=== PATIENT | female | born 1950 | race Caucasian/White ===

== ENCOUNTER → 2020-08-02 15:29 | Outpatient (CLI) | payer MEDICARE, SELFPAY ==
--- NOTE | ~2020-08-02 | MM_ITS ---
EXAMINATION: MM screening abdirahman BI w shilpi HISTORY: Screening TECHNIQUE: Craniocaudal and mediolateral oblique 3-D tomosynthesis images were obtained and synthetic 2-D images were generated. CAD analysis was submitted and interpreted. COMPARISON: Comparison to multiple prior studies sequentially, with oldest reviewed study dated 01/2015. BREAST PARENCHYMAL COMPOSITION: There are scattered areas of fibroglandular density. FINDINGS: There is no evidence of suspicious mass, calcification, or architectural distortion to sugg est malignancy in either breast. There has been no suspicious interval change. IMPRESSION: 1. No mammographic evidence of malignancy. 2. Recommend routine screening mammography in one year. BI-RADS Category 1: Negative Reviewed, dictated and finalized at location A. T ACCOUNTANT
== END ==
PROVIDERS: Visit Provider Student in an Organized Health Care Education/Training Program
DX: Z12.31 Encounter for screening mammogram for malignant neoplasm of breast (principal)
CPT/HCPCS: 77063; 77067

== ENCOUNTER → 2021-10-12 12:21 | Outpatient (CLI) | payer MEDICARE, SELFPAY ==
--- NOTE | ~2021-10-12 | MM_ITS ---
EXAMINATION: MM screening abdirahman BI w shilpi HISTORY: Screening TECHNIQUE: Craniocaudal and mediolateral oblique 3-D tomosynthesis images were obtained and synthetic 2-D images were generated. CAD analysis was submitted and interpreted. COMPARISON: No prior mammogram is available for comparison at this institution. BREAST PARENCHYMAL COMPOSITION: Comparison to multiple prior studies sequentially, with oldest review ed study dated 03/01/2015. FINDINGS: There is no evidence of suspicious mass, calcification, or architectural distortion to sugg est malignancy in either breast. There has been no suspicious interval change. IMPRESSION: 1. No mammographic evidence of malignancy. 2. Recommend routine screening mammography in one year. BI-RADS Category 2: Benign finding(s). Reviewed, dictated and finalized at location D. DIRECTOR
== END ==
PROVIDERS: Visit Provider Student in an Organized Health Care Education/Training Program
DX: Z12.31 Encounter for screening mammogram for malignant neoplasm of breast (principal)
CPT/HCPCS: 77063; 77067

== ENCOUNTER → 2021-12-07 13:28 | Outpatient (CLI) | payer MEDICARE, SELFPAY ==
--- NOTE | ~2021-12-07 | DEXA_ITS ---
Bone Density Report Name: CAROLYN CHA Age: 71 Sex: Female Ethnicity: White Date of : 1950 Indication: postmenopausal; screening for osteoporosis; Referring Provider: Clara Lugo Study: Bone densitometry was performed. Exam Date: December 07, 2021 Accession number: [id number] Bone Density: Region BMD T-score Z-score Classification AP Spine (L1-L4) 1.175 1.2 3.3 Normal Femoral Neck (Left) 0.940 0.8 2.6 Normal Total Hip (Left) 1.106 1.3 2.9 Normal Femoral Neck (Right) 0.905 0.5 2.3 Normal Total Hip (Right) 1.069 1.0 2.6 Normal Total Hip Mean 1.088 1.2 2.8 Normal World Health Organization criteria for BMD impression classify patients as: Normal (T-score at or above -1.0), Osteopenia (T-score between -1.0 and -2.5), or Osteoporosis (T-score at or below -2.5). 10-year Fracture Risk: FRAX not reported because: All T-scores for Spine Total, Hip Total, Femoral Neck at or above -1.0 Previous Exams: Region Exam Age BMD T-score BMD Change BMD Change Date g/cm2 vs Baseline vs Previous AP Spine(L1-L4) 12/07/2021 71 1.175 1.2 -0.015 0.016 05/08/2019 68 1.159 1.0 -0.032* -0.053* 06/23/2016 65 1.212 1.5 0.022 0.058* 02/19/2014 63 1.153 1.0 -0.037* -0.037* 02/09/2012 61 1.190 1.3 Total Hip(Left) 12/07/2021 71 1.106 1.3 -0.019 -0.021 05/08/2019 68 1.126 1.5 0.002 0.015 06/23/2016 65 1.111 1.4 -0.014 0.008 02/19/2014 63 1.103 1.3 -0.022 -0.022 02/09/2012 61 1.124 1.5 Total Hip(Right) 12/07/2021 71 1.069 1.0 -0.025 -0.002 05/08/2019 68 1.071 1.1 -0.023 -0.017 06/23/2016 65 1.088 1.2 -0.007 0.000 02/19/2014 63 1.088 1.2 -0.006 -0.006 02/09/2012 61 1.095 1.3 *Denotes significance at 95% confidence level, LSC for AP Spine = 0.022 g/cm2, LSC for Total Hip = 0.027 g/cm2 Clinical Information Provided by Patient: Patient maximum height was 64.0 Menopause Age: 53 No regular weight bearing exercise Drinks caffeinated beverages Onset of menses at age 13 Number of children 2 Impression: The patient has normal bone mass. No significant bone loss was observed. Discussion: LOW RISK OF FRACTURE; BONE DENSITY IS WELL ABOVE THE MINIMUM DESIRABLE LEVEL AN
== END ==
PROVIDERS: Visit Provider Student in an Organized Health Care Education/Training Program
DX: Z78.0 Asymptomatic menopausal state (principal)
CPT/HCPCS: 77080

== ENCOUNTER → 2022-10-26 14:07 | Outpatient (CLI) | payer MEDICARE, SELFPAY ==
--- NOTE | ~2022-10-26 | MM_ITS ---
EXAMINATION: MM screening abdirahman BI w shilpi HISTORY: Screening mammogram TECHNIQUE: Craniocaudal and mediolateral oblique 3-D tomosynthesis images were obtained and synthetic 2-D images were generated. CAD analysis was submitted and interpreted. COMPARISON: July 12, 2022, August 02, 2020, May 08, 2019 bilateral screening mammogram exa minations BREAST PARENCHYMAL COMPOSITION: There are scattered areas of fibroglandular density. FINDINGS: There is no evidence of suspicious mass, calcification, or architectural distortion to sugg est malignancy in either breast. There has been no suspicious interval change. IMPRESSION: 1. No mammographic evidence of malignancy. 2. Recommend routine screening mammography in one year. BI-RADS Category 1: Negative Reviewed, dictated and finalized at location A. N CREW
== END ==
PROVIDERS: PCP Family Medicine; Visit Provider Registered Nurse
DX: Z12.31 Encounter for screening mammogram for malignant neoplasm of breast (principal)
CPT/HCPCS: 77063; 77067

== ENCOUNTER 2023-11-20 14:49 | Outpatient (CLI) | payer MEDICARE, SELFPAY ==
--- NOTE | ~2023-11-20 | MM_ITS ---
EXAMINATION: MM screening abdirahman BI w shilpi HISTORY: Screening mammogram TECHNIQUE: Craniocaudal and mediolateral oblique 3-D tomosynthesis images were obtained and synthetic 2-D images were generated. CAD analysis was submitted and interpreted. COMPARISON: 10/26/2022, 10/12/2021 bilateral screening mammogram examinations BREAST PARENCHYMAL COMPOSITION: There are scattered areas of fibroglandular density. FINDINGS: There is no evidence of suspicious mass, calcification, or architectural distortion to sugg est malignancy in either breast. There has been no suspicious interval change. IMPRESSION: 1. No mammographic evidence of malignancy. 2. Recommend routine screening mammography in one year. BI-RADS Category 1: Negative Reviewed, dictated and finalized at location A.
== END 2023-11-20 14:50 ==
PROVIDERS: PCP Nurse Practitioner Family; Visit Provider Nurse Practitioner Family
DX: Z12.31 Encounter for screening mammogram for malignant neoplasm of breast (principal)
CPT/HCPCS: 77063; 77067

== ENCOUNTER 2024-02-29 14:15 | Outpatient (RCR) | payer MEDICARE, SELFPAY ==
--- NOTE | 2023-12-18 09:58 | OPREHPOC ---
Outpatient Therapy Plan of Care This is a Multidisciplinary Plan of Care that may contain components documented by all disciplines (PT, OT, and ST.) PT Problem 1 PT Problem #1 Knowledge Deficit PT Goal 1 Goal *indep with HEP * use correct posture with exercises Target Visit 10 PT Problem 2 PT Problem #2 Pain PT Goal 1 Goal 1* pt report pain rating at worst of 7/10 2* radicular pain L LE to knee at worst 3* self assessment Oswestry rating of 28% limitation in activity Target Visit 10 PT Problem 3 PT Problem #3 Impaired Flexibility PT Goal 1 Goal improve ROM and mobility skills, pt performing 3x without pain increase 1* supine L hip flexion 2* supine L SLR/hamstring stretch to 60' Target Visit 10 PT Problem 4 PT Problem #4 Impaired Strength PT Goal 1 Goal increase strength of LE's to improve mobility and support to back: 1* supine/sit transfer without use of UE's to move L LE 2* supine mat strengthening exercises x 20 reps Target Visit 10
--- NOTE | 2023-12-18 09:58 | PTOPEVAL1 ---
Assessment and note entered by Mitzi Rodríguez, PT Evaluation Information Assessment Status Evaluation Diagnosis low back pain, sciatica Onset past year Subjective Information chronic back pain since 2020, gradual increase in pain, now worse; into L leg; have been to pain management for back and hip pain - had 6 injections, they did not help; saw neurosurgeon-have bulging disc, ? need surgery or not; have had PT in the past for her back-stretching, exercises, US, electrical stim-helped a little, but not keep up with the exercises; had recent R THR in Aug 2023 Activity: live with sister, who helps her with home tasks; cannot put on shoes/socks- wears slip on shoes; does try to do regular exercises- water exercises at [employer] and walking at [employer] 30 min; indep with showers; Reported Pain Level Pain Score Self Report Additional Pain Score Comments pain range in the past week: 3-10/10, into L LE intermittent to medial ankle, lateral calf, groin and lateral hip; increase pain: stairs, walking/up on feet 30 min; decrease pain: sit/rest, ice, heat, scripts for pain; at night: take muscle relaxer for sleeping, have elevating head and leg bed which helps her sleep position; awaken due to pain 0-1x/night; Assessment PT Clinical Summary Lolis has the diagnosis of low back pain, radicular into L LE to ankle- intermittent. Self assessment Oswestry rating of 40% limitation in activity level. She has a history of chronic back pain and in Aug 2023 had R THR. Pain is increased with walking/standing 30 minutes and unable to put her shoes and socks on her feet. Her sister assists with home tasks and putting on her socks. With the evaluation: trunk flexion increases her pain; tightness and pain with L hamstring stretch in supine; weakness and pain in L LE--uses UEs to move leg on/off mat and in/out car. Skilled PT services are indicated for modalities for pain, therapeutic ex
--- NOTE | 2024-01-17 09:54 | OPREHPOC ---
Outpatient Therapy Plan of Care This is a Multidisciplinary Plan of Care that may contain components documented by all disciplines (PT, OT, and ST.) PT Problem 1 PT Problem #1 Knowledge Deficit PT Goal 1 Goal *indep with HEP * use correct posture with exercises Target Visit 10 Progress Met PT Goal 2 Goal 01-17-24 progress met goals continue towards goals to progress education Target Visit 17 PT Problem 2 PT Problem #2 Pain PT Goal 1 Goal 1* pt report pain rating at worst of 7/10 2* radicular pain L LE to knee at worst 3* self assessment Oswestry rating of 28% limitation in activity Target Visit 10 Progress Not Met PT Goal 2 Goal 01-17-24 progress goals not met continue towards goals Target Visit 17 PT Problem 3 PT Problem #3 Impaired Flexibility PT Goal 1 Goal improve ROM and mobility skills, pt performing 3x without pain increase 1* supine L hip flexion 2* supine L SLR/hamstring stretch to 60' Target Visit 10 Progress Partially Met PT Goal 2 Goal 01-17-24 progress met goal 2 continue towards #1 goal Target Visit 17 PT Problem 4 PT Problem #4 Impaired Strength PT Goal 1 Goal increase strength of LE's to improve mobility and support to back: 1* supine/sit transfer without use of UE's to move L LE 2* supine mat strengthening exercises x 20 reps Target Visit 10 Progress Partially Met PT Goal 2 Goal 01-17-24 progress met goal #1 continue towards goal #2 Target Visit 17
--- NOTE | 2024-01-17 09:55 | PTOPEVAL1 ---
Assessment and note entered by Mitzi Rodríguez, PT Evaluation Information Assessment Status Progress Diagnosis low back pain, sciatica Onset past year Subjective Information therapy is helping; exercises are gentle and help, easy to do; have learned to not over do it with activity; have dizziness with sitting to lying down- have to stop and it clears in few seconds; want to continue therapy; Reported Pain Level Pain Score Self Report Pain Score Self Report Additional Pain Score Comments pain range in the past week 1-10/10; L lateral hip and sometimes radiate from knee to anterior dubon to ankle; increase pain: too much activity decrease pain: heat, muscle relaxer Additional Pain Score Comments none Assessment PT Clinical Summary Lolis has received 9 PT sessions. Continues to use cane for safety with walking outside of her home. Has some dizziness with positional changes. Compared to the initial evaluation: pain rating at the low rating from 3 to 1/10 and worst rating same at 10/10; radicular pain to L LE to ankle, intermittent is the same; self assessment Oswestry rating of 40% limitation is same; increase strength of trunk and LE; continues to have pain with supine L hip flexion, IR and ER motions; increased awareness of pain management with use of activity/rest balance, education for HEP; The goals were partially met. Continue PT treatment. Plan of Care Interventions Electrical Stimulation,Hot Pack/Cold Pack,Manual Therapy,Mechanical Traction,Neuro Re-education, Patient/Caregiver Education,Therapeutic Activities, Therapeutic Exercise,Ultrasound,Other Other Interventions taping, [facility] PT Services Indicated Yes Treatment Frequency and 2x/wk for 8 visits Duration These treatments will address the objective and functional deficits as defined above. The patient will be advanced safely and appropriately in order for the patient to progress towards his/her prior level of function. Additional exercises will be introduced and as well as a comprehensive home exercise program upon discharge, if needed, ?to ensure carryover of functional gains achieved in the clinic. This treatment plan has been reviewed and agreement upon by the patient.
--- NOTE | 2024-02-14 08:42 | PCPTNOTE ---
Pt called and canceled today, ill. AKS
--- NOTE | 2024-02-14 08:53 | PCPTNOTE ---
Patient cancelled today's visit due to illness
--- NOTE | 2024-02-19 11:59 | PTOPEVAL1 ---
Assessment and note entered by Mitzi Rodríguez, PT Evaluation Information Assessment Status Evaluation vertigo/ discharge back treatment Diagnosis vertigo Onset December 2023 Subjective Information back is better, was able to walk yesterday for fitness for 25 minutes; to see ortho dr about L hip- ? need a hip replacement; had L knee injection lately and it helped knee, but still had pain down leg to calf; BACK PAIN: pain range in the past week 3-510; aching lateral thigh to medial calf- intermittent and more at night; decrease pain with supine position, pain gel, heat and tylenol; VERTIGO EVALUATION: use cane to help balance and fearful of falling symptoms: spinning, off balance increase with: lie down/sit up in bed, walking and looking at feet, then look up Reported Pain Level Pain Score 3: Self Report Additional Pain Score Comments BACK PAIN: pain range in the past week 3-10; aching lateral thigh to medial calf- intermittent and more at night; decrease pain with supine position, pain gel, heat and tylenol; Assessment PT Clinical Summary Lolis has received 16 PT sessions for back pain. Compared to the last progress report for her back: pain from -06/05 to 3-01/03; continues to have intermittent pain into L LE to mid dubon; self assessment Oswestry from 40% to 38% limitation; continues to have pain in L hip with flexion, IR and ER motions; Education completed for HEP and pain management techniques. The goals were partially met. Discontinue treatment for back. Evaluation for vertigo this date: vestibular testing: was positive for BPPV- Anterior/ posterior canal on the R; education for vestibular system, safety with mobility and BPPV.
--- NOTE | 2024-02-19 12:00 | OPREHPOC ---
Outpatient Therapy Plan of Care This is a Multidisciplinary Plan of Care that may contain components documented by all disciplines (PT, OT, and ST.) PT Problem 1 PT Problem #1 Knowledge Deficit PT Goal 1 Goal *indep with HEP * use correct posture with exercises Target Visit 10 Progress Met PT Goal 2 Goal 01-17-24 progress met goals continue towards goals to progress education Target Visit 17 Progress Met Comment 02-19-24: d/c back met goal 02-19-24 EVAL for vertigo * indep with HEP for vestibular system * good safety awareness with dizziness and mobility PT Problem 2 PT Problem #2 Pain PT Goal 1 Goal 1* pt report pain rating at worst of 7/10 2* radicular pain L LE to knee at worst 3* self assessment Oswestry rating of 28% limitation in activity Target Visit 10 Progress Not Met PT Goal 2 Goal 01-17-24 progress goals not met continue towards goals Target Visit 17 Progress Partially Met Comment 02-19-24: d/c back met goal 1; PT Problem 3 PT Problem #3 Impaired Flexibility PT Goal 1 Goal improve ROM and mobility skills, pt performing 3x without pain increase 1* supine L hip flexion 2* supine L SLR/hamstring stretch to 60' Target Visit 10 Progress Partially Met PT Goal 2 Goal 01-17-24 progress met goal 2 continue towards #1 goal Target Visit 17 Progress Not Met
--- NOTE | 2024-03-11 09:57 | PCPTNOTE ---
PHYSICAL THERAPY DISCHARGE Lolis has received 18 PT sessions, from December 17 to February 28. She called on March 04, canceled her remaining appointments due to feeling better and not need therapy anymore. Discharge PT per pt request. The goals were not addressed.
== END 2024-03-10 11:25 | disposition home or self-care (01) ==
LOC: ANHPT 14:15
PROVIDERS: PCP Nurse Practitioner Family
DX: M54.42 Lumbago with sciatica, left side (principal); G89.29 Other chronic pain; H81.11 Benign paroxysmal vertigo, right ear; M54.16 Radiculopathy, lumbar region
CPT/HCPCS: 95992; 97014; 97110; 97116; 97140; 97161; 97162; 97530; 99199; G0283

== ENCOUNTER 2024-05-01 11:29 | Outpatient (CLI) | payer MEDICARE, SELFPAY ==
--- NOTE | 2024-05-01 12:59 | ECG_ITS ---
Test Date: 2024-05-01 13:10:42 Measurements Intervals [place] Rate: 61 P: 62 RI: 133 QRS: 15 QRSD: 98 T: 31 QT: 412 QTc: 415 Interpretive Statements SINUS RHYTHM BORDERLINE R WAVE PROGRESSION, ANTERIOR LEADS BORDERLINE ST-T WAVE ABNORMALITY- INFERIOR LEADS BASELINE ARTIFACT- I, II, III, AVR, AVL, AVF, V1-V6 BORDERLINE ECG No previous ECG available for comparison Electronically Signed On 05-01-2024 13:12:46 CDT by James Acevedo D.O.
[2024-05-01 14:03] LABS: Basophils Percent Auto 0.3 % (0.2-1.2); Eosinophils Absolute Auto 0.1 K/mm3 (0-0.3); Eosinophils Percent Auto 1.9 % (0-4.4); Hematocrit 34.5 % (37.0-47.0); Hemoglobin 10.8 g/dL (12.0-15.0); Immature Granulocyte Absolute 0.03 K/mm3 (0.00-0.031); Immature Granulocyte Percent A 0.4 % (0-0.5); Lymphocytes Absolute Auto 2.03 K/mm3 (0.9-3.2); Mean Corpuscular HGB Conc 31.3 g/dl (32-36); Mean Corpuscular Hemoglobin 27.8 pg (26-34); Mean Corpuscular Volume 88.9 fl (80-100); Mean Platelet Volume 9.6 fl (7.4-10.4); Monocytes Absolute Auto 0.6 K/mm3 (0.1-0.6); Monocytes Percent Auto 8.1 % (2.6-8.5); Neutrophils Absolute Auto 4.7 K/mm3 (1.3-6.7); Neutrophils Percent Auto 62.3 % (45.5-73.1); Platelet Count Result 304 k/mm3 (150-375); Red Blood Count 3.88 M/mm3 (4.2-5.4); Red Cell Distribution Width 13.1 % (11.5-14.5); White Blood Count 7.5 K/mm3 (4.5-10.0)
[2024-05-01 14:31] LABS: Albumin Level 4.5 g/dL (3.5-5.1); Anion Gap 12 mmol/L (4-12); Blood Urea Nitrogen 32 mg/dL (7-17); Calcium 9.4 mg/dL (8.4-10.2); Carbon Dioxide 27 mmol/L (22-30); Chloride 100 mmol/L (98-107); Estimated Glomerular Filt Rate 55; Glucose 152 mg/dL (65-110); Potassium 4.2 mmol/L (3.4-5.0); Sodium 139 mmol/L (137-145)
[2024-05-01 15:12] LABS: Urine Cotinine NEGATIVE
[2024-05-01 15:19] LABS: Hemoglobin A1C 6.4 % (<5.7)
== END 2024-05-01 11:30 | disposition home or self-care (01) ==
PROVIDERS: PCP Family Medicine; Visit Provider Orthopaedic Surgery
DX: Z01.818 Encounter for other preprocedural examination (principal); M16.12 Unilateral primary osteoarthritis, left hip
CPT/HCPCS: 80048; 80307; 82040; 83036; 85025; 86850; 86900; 86901; 87081; 87181; 93005

== ENCOUNTER 2024-05-05 14:05 | Outpatient (CLI) | payer MEDICARE, SELFPAY ==
[2024-05-05 14:25] LABS: Hematocrit 32.9 % (37.0-47.0); Hemoglobin 10.1 g/dL (12.0-15.0); Mean Corpuscular HGB Conc 30.7 g/dl (32-36); Mean Platelet Volume 9.6 fl (7.4-10.4); Platelet Count Result 292 k/mm3 (150-375); Red Blood Count 3.74 M/mm3 (4.2-5.4); Red Cell Distribution Width 13.2 % (11.5-14.5); White Blood Count 8.1 K/mm3 (4.5-10.0)
[2024-05-05 14:50] LABS: Iron 66 ug/dL (37-170)
[2024-05-05 15:09] LABS: Percent Iron Saturation 21 % (20-50)
== END 2024-05-05 14:06 | disposition home or self-care (01) ==
PROVIDERS: PCP Family Medicine; Visit Provider Orthopaedic Surgery
DX: D64.9 Anemia, unspecified (principal)
CPT/HCPCS: 36415; 82607; 82746; 83540; 83550; 85027

== ENCOUNTER 2024-06-19 11:58 | Outpatient (RCR) | payer MEDICARE, SELFPAY ==
[2024-05-14 12:15] LABS: Basophils Percent Auto 0.7 % (0.2-1.2); Eosinophils Absolute Auto 0.1 K/mm3 (0-0.3); Eosinophils Percent Auto 2.4 % (0-4.4); Hematocrit 33.2 % (37.0-47.0); Hemoglobin 10.4 g/dL (12.0-15.0); Immature Granulocyte Absolute 0.02 K/mm3 (0.00-0.031); Immature Granulocyte Percent A 0.3 % (0-0.5); Lymphocytes Absolute Auto 1.63 K/mm3 (0.9-3.2); Mean Corpuscular HGB Conc 31.3 g/dl (32-36); Mean Corpuscular Hemoglobin 27.6 pg (26-34); Mean Corpuscular Volume 88.1 fl (80-100); Mean Platelet Volume 9.9 fl (7.4-10.4); Monocytes Absolute Auto 0.5 K/mm3 (0.1-0.6); Monocytes Percent Auto 9.3 % (2.6-8.5); Neutrophils Absolute Auto 3.5 K/mm3 (1.3-6.7); Neutrophils Percent Auto 59.3 % (45.5-73.1); Platelet Count Result 273 k/mm3 (150-375); Red Blood Count 3.77 M/mm3 (4.2-5.4); Red Cell Distribution Width 13.3 % (11.5-14.5); White Blood Count 5.8 K/mm3 (4.5-10.0)
[2024-05-22 09:46] LABS: Basophils Percent Auto 0.4 % (0.2-1.2); Eosinophils Absolute Auto 0.1 K/mm3 (0-0.3); Eosinophils Percent Auto 2.1 % (0-4.4); Hematocrit 33.7 % (37.0-47.0); Hemoglobin 10.4 g/dL (12.0-15.0); Immature Granulocyte Absolute 0.02 K/mm3 (0.00-0.031); Immature Granulocyte Percent A 0.3 % (0-0.5); Lymphocytes Absolute Auto 1.68 K/mm3 (0.9-3.2); Lymphocytes Percent Auto 24.9 % (18.3-44.2); Mean Corpuscular HGB Conc 30.9 g/dl (32-36); Mean Corpuscular Hemoglobin 27.3 pg (26-34); Mean Corpuscular Volume 88.5 fl (80-100); Mean Platelet Volume 9.6 fl (7.4-10.4); Monocytes Absolute Auto 0.7 K/mm3 (0.1-0.6); Monocytes Percent Auto 9.8 % (2.6-8.5); Neutrophils Absolute Auto 4.2 K/mm3 (1.3-6.7); Neutrophils Percent Auto 62.5 % (45.5-73.1); Platelet Count Result 256 k/mm3 (150-375); Red Blood Count 3.81 M/mm3 (4.2-5.4); Red Cell Distribution Width 13.5 % (11.5-14.5); White Blood Count 6.8 K/mm3 (4.5-10.0)
[2024-05-29 11:52] LABS: Basophils Percent Auto 0.5 % (0.2-1.2); Eosinophils Absolute Auto 0.1 K/mm3 (0-0.3); Eosinophils Percent Auto 1.8 % (0-4.4); Hematocrit 33.7 % (37.0-47.0); Hemoglobin 10.6 g/dL (12.0-15.0); Immature Granulocyte Absolute 0.01 K/mm3 (0.00-0.031); Immature Granulocyte Percent A 0.1 % (0-0.5); Lymphocytes Absolute Auto 1.61 K/mm3 (0.9-3.2); Lymphocytes Percent Auto 20.6 % (18.3-44.2); Mean Corpuscular HGB Conc 31.5 g/dl (32-36); Mean Corpuscular Hemoglobin 27.7 pg (26-34); Mean Corpuscular Volume 88.2 fl (80-100); Monocytes Absolute Auto 0.7 K/mm3 (0.1-0.6); Neutrophils Absolute Auto 5.3 K/mm3 (1.3-6.7); Platelet Count Result 279 k/mm3 (150-375); Red Blood Count 3.82 M/mm3 (4.2-5.4); Red Cell Distribution Width 13.5 % (11.5-14.5); White Blood Count 7.8 K/mm3 (4.5-10.0)
[2024-06-04 11:57] LABS: Basophils Percent Auto 0.5 % (0.2-1.2); Eosinophils Absolute Auto 0.1 K/mm3 (0-0.3); Eosinophils Percent Auto 2.1 % (0-4.4); Hematocrit 32.6 % (37.0-47.0); Hemoglobin 10.1 g/dL (12.0-15.0); Immature Granulocyte Absolute 0.01 K/mm3 (0.00-0.031); Immature Granulocyte Percent A 0.2 % (0-0.5); Lymphocytes Absolute Auto 1.87 K/mm3 (0.9-3.2); Lymphocytes Percent Auto 29.6 % (18.3-44.2); Mean Corpuscular Hemoglobin 27.4 pg (26-34); Mean Corpuscular Volume 88.3 fl (80-100); Mean Platelet Volume 10.1 fl (7.4-10.4); Monocytes Absolute Auto 0.6 K/mm3 (0.1-0.6); Neutrophils Absolute Auto 3.6 K/mm3 (1.3-6.7); Neutrophils Percent Auto 57.6 % (45.5-73.1); Platelet Count Result 277 k/mm3 (150-375); Red Blood Count 3.69 M/mm3 (4.2-5.4); Red Cell Distribution Width 13.7 % (11.5-14.5); White Blood Count 6.3 K/mm3 (4.5-10.0)
[2024-06-12 15:28] LABS: Basophils Percent Auto 0.5 % (0.2-1.2); Eosinophils Absolute Auto 0.1 K/mm3 (0-0.3); Eosinophils Percent Auto 1.7 % (0-4.4); Hemoglobin 10.2 g/dL (12.0-15.0); Immature Granulocyte Absolute 0.01 K/mm3 (0.00-0.031); Immature Granulocyte Percent A 0.2 % (0-0.5); Lymphocytes Absolute Auto 1.98 K/mm3 (0.9-3.2); Lymphocytes Percent Auto 31.2 % (18.3-44.2); Mean Corpuscular HGB Conc 30.9 g/dl (32-36); Mean Corpuscular Hemoglobin 27.2 pg (26-34); Mean Platelet Volume 9.6 fl (7.4-10.4); Monocytes Absolute Auto 0.6 K/mm3 (0.1-0.6); Monocytes Percent Auto 9.9 % (2.6-8.5); Neutrophils Absolute Auto 3.6 K/mm3 (1.3-6.7); Neutrophils Percent Auto 56.5 % (45.5-73.1); Platelet Count Result 277 k/mm3 (150-375); Red Blood Count 3.75 M/mm3 (4.2-5.4); Red Cell Distribution Width 13.6 % (11.5-14.5); White Blood Count 6.3 K/mm3 (4.5-10.0)
[2024-06-19 12:15] LABS: Basophils Percent Auto 0.3 % (0.2-1.2); Eosinophils Absolute Auto 0.1 K/mm3 (0-0.3); Eosinophils Percent Auto 1.6 % (0-4.4); Hematocrit 33.9 % (37.0-47.0); Hemoglobin 10.8 g/dL (12.0-15.0); Immature Granulocyte Absolute 0.01 K/mm3 (0.00-0.031); Immature Granulocyte Percent A 0.1 % (0-0.5); Lymphocytes Absolute Auto 1.84 K/mm3 (0.9-3.2); Lymphocytes Percent Auto 27.4 % (18.3-44.2); Mean Corpuscular HGB Conc 31.9 g/dl (32-36); Mean Corpuscular Hemoglobin 27.6 pg (26-34); Mean Corpuscular Volume 86.7 fl (80-100); Mean Platelet Volume 9.2 fl (7.4-10.4); Monocytes Absolute Auto 0.7 K/mm3 (0.1-0.6); Neutrophils Absolute Auto 4.1 K/mm3 (1.3-6.7); Neutrophils Percent Auto 60.6 % (45.5-73.1); Platelet Count Result 244 k/mm3 (150-375); Red Blood Count 3.91 M/mm3 (4.2-5.4); Red Cell Distribution Width 13.8 % (11.5-14.5); White Blood Count 6.7 K/mm3 (4.5-10.0)
== END 2024-08-12 23:59 | disposition home or self-care (01) ==
LOC: ANHLAB 11:58
PROVIDERS: Referring Provider Orthopaedic Surgery
DX: D64.9 Anemia, unspecified (principal)
CPT/HCPCS: 36415; 85025

== ENCOUNTER 2024-06-23 13:31 | Outpatient (CLI) | payer MEDICARE, SELFPAY ==
[2024-06-23 14:11] LABS: Prothrombin Time 13.9 Seconds (11.1-14.7)
[2024-06-23 14:12] LABS: Partial Thromboplastin Time 30.4 Seconds (22.3-36.8)
== END 2024-06-23 13:32 | disposition home or self-care (01) ==
PROVIDERS: Anesthesiology; Visit Provider Orthopaedic Surgery
DX: Z01.812 Encounter for preprocedural laboratory examination (principal); N18.31 Chronic kidney disease, stage 3a; M16.12 Unilateral primary osteoarthritis, left hip
CPT/HCPCS: 36415; 85610; 85730; 86850; 86900; 86901

== ENCOUNTER 2024-06-30 00:22 | Day surgery (SDC) | payer MEDICARE, SELFPAY ==
[2024-05-01 12:13] VITALS: BP 154/55; PULSE 61; RESP 16; TEMP 37.1; O2SAT 100; BMI 34.0
--- NOTE | 2024-05-01 12:32 | PC.NURSE ---
Report to the Outpatient Waiting Room, entrance under the green pavilion located off [facility], at time _6:30AM_ on date _05/06/24_. Planned Procedure Time: ___8:30AM .? Time changes happen often and if your time is changed the preop area will call you the afternoon before. - You and your visitor will be asked to self-screen and do not enter if you have any COVID symptoms. Please call surgeon if you need to reschedule. - A mask is optional within the hospital at this time. Patients may have clear liquids (water, carbonated beverages, clear teas, apple juice) until 3 hours prior to surgery with a maximum of 20 ounces. - No food from midnight until time of surgery and no smoking. Take only the following medications with a SIP of water on the morning of surgery: NONE DO NOT STOP ANY OF YOUR OTHER PRESCRIPTION MEDICATIONS PRIOR TO SURGERY EXCEPT THE FOLLOWING Medications to discontinue per physician NONE Date to take last dose Please no make-up, nail georgian, hairspray, perfume, deodorant, or body powder the day of surgery.? No jewelry (including any body piercings) or valuables the day of surgery, leave them at home.? Please take a shower or bath the night before, or the morning of, surgery with an antibacterial soap.? Wear comfortable, loose fitting clothing.? - Jewelry must be removed prior to entering the operating room.? Rings and piercings that are not removed may be cut off. - The hospital will not accept responsibility for valuables.? - Please leave all valuables, including medications, at home the day of surgery. If you are going home after surgery, a licensed delivery driver must drive you home.? - NO public transportation without another adult if you receive anesthesia. - We recommend that an adult stay with you for 24 hours following discharge. - We also recommend that you do not drive, make important decision, drink alcoholic beverages, or take any drugs that were not prescribed by your health care provider for at least 24 hours after your discharge time. Follow any additional instructions given to you from your surgeon. MUPIROCIN OINTMENT AND HIBICLENS SHOWERS PER DR MCADAMS. Telephone instructions given to and asked if any additional questions and then verbalized understanding. Patient advised to call surgeon office or pre surgery nurse liaison [phone] if any additional questions.
--- NOTE | 2024-05-05 12:42 | PM.IMHP ---
H&P: HPI History of Present Illness Date/Time: 05/05/24 12:42 Chief Complaint: Left hip DJD Narrative: 73-year-old female patient of who presents today for a left total hip arthroplasty. Patient underwent right total hip arthroplasty in August of this year. She has had progression of the arthritis in the left hip. She has also had significant progression the symptoms in her left hip. At this point she is [id number] in superior aspect of the left hip. She is also having significant symptoms on a daily basis. She feels pain in the groin and lateral hip that radiates down towards the knee. She has been using cane occasionally due to the pain. Patient feels she would rather proceed with total hip arthroplasty at this point. Patient is unable take anti-inflammatories she had worsening her kidney function while taking them and was therefore advised not to take anti-inflammatories anymore. Review of Systems Review of Systems: All systems reviewed & are unremarkable except as noted in HPI and below PMFSH Past Medical History Medical History Acute back pain with sciatica Depression Diverticulitis H/O vaginal delivery Hyperlipidemia Hypertension Low back pain Surgical History Surgical History H/O colonoscopy 2011 H/O dilation and curettage History of right hip replacement Aug 2023 Family History Family History Father Diabetes mellitus Family history of hypercholesterolemia Hypertension Grandparent Diabetes mellitus Carcinoma of colon Family history of malignant neoplasm of breast Mother Diabetes mellitus Family history of hypercholesterolemia Hypertension Social History Social History Smoking status: Never smoker Second hand tobacco smoke exposure: Yes Alcohol intake: current Alcohol use details: occasional Substance use: never Do You Feel Safe in your Home?: Yes Lack of Transportation: No Lack of Food: Never True Current Housing: I Have Housing Concerned About Future Housing: No Difficulty Paying Gas/Electric Bills: No Difficulty Paying for Meds: No Currently Unemployed: No Education: Bachelor's Degree Difficulty w/ Childcare or Family Care: No Living arrangements: with family Additional living arrangements comments: SISTER Occupation/Education: retired Gender identity (if verbalized by the patient): Female Sexual Orientation (if Verbalized by the Patient): Straight or Heterosexual Spiritual care concerns: No Meds Home Medications and Allergies Home Medications Medication Instructions Recorded Confirmed Type lisinopril 20 1 tablet PO QAM 09/09/19 05/01/24 History mg-hydrochlorothiazide 25 mg tablet atorvastatin 10 mg tablet 10 mg PO DAILY 10/25/22 05/01/24 History escitalopram oxalate 10 mg tablet 10 mg PO HS 10/25/22 05/01/24 History acetaminophen 325 mg capsule 650 mg PO Q6H PRN Pain 02/06/24 05/01/24 History tizanidine 4 mg tablet 4 mg PO QHS PRN Muscle Spasm 02/06/24 05/01/24 History mupirocin 2 % topical ointment 1 applic topical BID #22 grams 04/22/24 05/01/24 Rx omeprazole 40 mg capsule,delayed 40 mg PO QAM 05/01/24 05/01/24 History release Allergies Allergy/AdvReac Type Severity Reaction Status Date / Time ampicillin Allergy Unknown Hives Verified 05/01/24 12:04 Penicillins Allergy Unknown RASH Verified 05/01/24 12:04 BEHIND EARS erythromycin base AdvReac Unknown DIARRHEA, Verified 05/01/24 12:04 VOMITING Exam Narrative: 73-year-old female alert pleasant. She is 5 ft 3 and 195 lb. She walks with a moderate limp. Left hip flexion is from 10-90 degrees. She is unable to extend the hip fully in the supine position due to pain in the lateral hip. Internal rotation is 0 external rotation to 30. She has normal abduction strength in lateral position. Mild tenderness over the greater trochanter. 2+ dorsalis pedis and posterior artery pulse palpable. There is no edema in lower extremity. Normal sensation left lower extremity. Skin around the hip and groin crease are normal. Resp: Auscultation: clear to auscultation bilaterally Cardio: Rate: regular rate Rhythm: regular rhythm Assessment and Plan Assessment and plan (1) Primary osteoarthritis of left hip: Code(s): M16.12 - Unilateral primary osteoarthritis, left hip Status: Acute Assessment and Plan: 73-year-old female who has had progression of the osteoarthritis of the left hip to the point where she is [id number]. She is also having rather severe symptoms on a daily basis associated with that. Patient did very well with her right hip replacement earlier this year and feels she is ready proceed with the left. Surgical procedure as well as the risks and complications were discussed all questions were answered and we proceed. Patient's hemoglobin was 10.8 and platelets were 3 or 4. Nasal swab did grow oxacillin sensitive Staph aureus. She has been decolonizing. Creatinine is 1.00, GFR was 55.
[2024-06-20 13:33] VITALS: BMI 34.6
--- NOTE | 2024-06-20 14:04 | PC.NURSE ---
Report to the Outpatient Waiting Room, entrance under the green pavilion located off [facility], at time ___6:00AM____ on date ___06/30/24____. Planned Procedure Time: ___7:30AM .? Time changes happen often and if your time is changed the preop area will call you the afternoon before. - You and your visitor will be asked to self-screen and do not enter if you have any COVID symptoms. Please call surgeon if you need to reschedule. - A mask is optional within the hospital at this time. Patients may have clear liquids (water, carbonated beverages, clear teas, apple juice) until 3 hours prior to surgery with a maximum of 20 ounces. - No food from midnight until time of surgery and no smoking, Take only the following medications with a SIP of water on the morning of surgery: NONE DO NOT STOP ANY OF YOUR OTHER PRESCRIPTION MEDICATIONS PRIOR TO SURGERY EXCEPT THE FOLLOWING Medications to discontinue per physician HOLD ALL VITAMINS/SUPPLEMENTS 3 DAYS PRE-OP PER ANESTHESIA Date to take last dose 06/26/24 Please no make-up, nail jamaican, hairspray, perfume, deodorant, or body powder the day of surgery.? No jewelry (including any body piercings) or valuables the day of surgery, leave them at home.? Please take a shower or bath the night before, or the morning of, surgery with an antibacterial soap.? Wear comfortable, loose fitting clothing.? - Jewelry must be removed prior to entering the operating room.? Rings and piercings that are not removed may be cut off. - The hospital will not accept responsibility for valuables.? - Please leave all valuables, including medications, at home the day of surgery. If you are going home after surgery, a licensed front load trash truck driver must drive you home.? - NO public transportation without another adult if you receive anesthesia. - We recommend that an adult stay with you for 24 hours following discharge. - We also recommend that you do not drive, make important decision, drink alcoholic beverages, or take any drugs that were not prescribed by your health care provider for at least 24 hours after your discharge time. Follow any additional instructions given to you from your surgeon. Telephone instructions given to ____PATIENT and asked if any additional questions and then verbalized understanding. Patient advised to call surgeon office or pre surgery nurse liaison [phone] if any additional questions.
--- NOTE | 2024-06-27 08:09 | PM.IMHP ---
H&P: HPI History of Present Illness Date/Time: 06/27/24 08:09 Chief Complaint: Left hip DJD Narrative: 73-year-old female who presents today for a left anterior total hip arthroplasty. Patient underwent right total hip arthroplasty in August this year. She had an excellent recovery and is happy with the results. Her left hip she has [id number] type 1 osteoarthritis. She is having symptoms on a daily basis. She is using a cane at times due to the pain. Patient is unable take anti-inflammatories due to chronic kidney disease. She feels at this point she is ready to proceed with total hip arthroplasty. Patient was originally scheduled for surgery in April of this year. Preop testing showed her hemoglobin to be 10.5. She had iron studies done which were normal. She also had a B12 and folate study done which was also normal. Patient has had several CBCs since and she has been diagnosed as chronic anemia at this point. Review of Systems Review of Systems: All systems reviewed & are unremarkable except as noted in HPI and below PMFSH Past Medical History Medical History Acute back pain with sciatica Depression Diverticulitis H/O vaginal delivery Hyperlipidemia Hypertension Low back pain Surgical History Surgical History H/O colonoscopy 2011 H/O dilation and curettage History of right hip replacement Aug 2023 Family History Family History Father Diabetes mellitus Family history of hypercholesterolemia Hypertension Grandparent Diabetes mellitus Carcinoma of colon Family history of malignant neoplasm of breast Mother Diabetes mellitus Family history of hypercholesterolemia Hypertension Social History Social History Smoking status: Never smoker Second hand tobacco smoke exposure: Yes Alcohol intake: current Alcohol use details: occasional Substance use: never Do You Feel Safe in your Home?: Yes Lack of Transportation: No Lack of Food: Never True Current Housing: I Have Housing Concerned About Future Housing: No Difficulty Paying Gas/Electric Bills: No Difficulty Paying for Meds: No Currently Unemployed: No Education: Bachelor's Degree Difficulty w/ Childcare or Family Care: No Living arrangements: with family Additional living arrangements comments: SISTER Occupation/Education: retired Gender identity (if verbalized by the patient): Female Sexual Orientation (if Verbalized by the Patient): Straight or Heterosexual Spiritual care concerns: No Meds Home Medications and Allergies Home Medications Medication Instructions Recorded Confirmed Type lisinopril 20 1 tablet PO QAM 09/09/19 06/20/24 History mg-hydrochlorothiazide 25 mg tablet atorvastatin 10 mg tablet 10 mg PO DAILY 10/25/22 06/20/24 History escitalopram oxalate 10 mg tablet 10 mg PO HS 10/25/22 06/20/24 History acetaminophen 325 mg capsule 650 mg PO Q6H PRN Pain 02/06/24 06/20/24 History tizanidine 4 mg tablet 4 mg PO QHS PRN Muscle Spasm 02/06/24 06/20/24 History omeprazole 40 mg capsule,delayed 40 mg PO QAM 05/01/24 06/20/24 History release cholecalciferol (vitamin D3) 50 50 mcg PO DAILY 05/29/24 06/20/24 History mcg (2,000 unit) capsule mecobalamin (vitamin B12) 5,000 5,000 mcg PO DAILY 05/29/24 06/20/24 History mcg disintegrating tablet multivitamin 1 tablet PO DAILY 05/29/24 06/20/24 History mupirocin 2 % topical ointment 1 applic topical BID 06/20/24 06/20/24 History Allergies Allergy/AdvReac Type Severity Reaction Status Date / Time ampicillin Allergy Unknown Hives Verified 06/20/24 13:33 Penicillins Allergy Unknown RASH Verified 06/20/24 13:33 BEHIND EARS erythromycin base AdvReac Unknown DIARRHEA, Verified 06/20/24 13:33 VOMITING Exam Narrative: 73-year-old female alert pleasant she is 5 ft 3 and 195 lb BMI is 34.5. She walks with a mild limp. Left hip range of motion is from 10-90 degrees. She has moderate lateral hip pain with flexion in 90?. Stinchfield maneuver causes her moderate anterior lateral hip pain. Internal rotation is 0 with moderate lateral hip pain external rotation of 30 without pain. She has normal abduction strength in lateral position. No tenderness over the greater trochanter. Skin around the hip and groin crease are normal. 2+ dorsalis pedis and posterior tibial artery pulse palpable. No edema in lower extremities. Normal sensation lower extremity. Resp: Auscultation: clear to auscultation bilaterally Cardio: Rate: regular rate Rhythm: regular rhythm Assessment and Plan Assessment and plan (1) Primary osteoarthritis of left hip: Code(s): M16.12 - Unilateral primary osteoarthritis, left hip Status: Acute Assessment and Plan: 73-year-old female who is [id number] osteoarthritis left hip with daily symptoms. At this point she feels she is ready proceed with total hip arthroplasty. Surgical procedures well as the risks and complications were discussed in detail questions were answered proceed. Patient's nasal swab did grow oxacillin sensitive Staph aureus she has been Decolonizing. Hemoglobin 10.1 and platelets were 244. BUN 32 creatinine is 1.00 GFR was 55.
[2024-06-30] VITALS (16 sets, daily range): BP systolic 116–179; BP diastolic 50–97; PULSE 58–76; RESP 10–18; TEMP 35.6–36.7; O2SAT 98–100
--- NOTE | ~2024-06-30 | XR_ITS ---
EXAMINATION: XR surgery orthopedic DATE: 06/30/2024 10:36 INDICATION: Left hip arthroplasty. TECHNIQUE: A single intraoperative fluoroscopic view of left hip was obtained. I was not present. Flu oroscopy exposure time was 40 seconds. COMPARISON: Pelvis radiograph 06/30/2024 FINDINGS: There is a total left hip arthroplasty in near-anatomic alignment. IMPRESSION: 1. Total left hip arthroplasty in near-anatomic alignment. Reviewed, dictated and finalized at location A. S ENTERPRISE INTEGRATOR
--- NOTE | ~2024-06-30 | XR_ITS ---
EXAMINATION: XR hip LT 1V w AP pelvis DATE: 06/30/2024 11:47 INDICATION: Total left hip arthroplasty. Postop. TECHNIQUE: An anteroposterior view of the pelvis and single view of left hip were obtained. COMPARISON: Pelvis and left hip radiographs 03/05/2024 FINDINGS: There are bilateral total hip arthroplasties in near-anatomic alignment. No fracture. No pe riprosthetic lucency to suggest loosening or infection. IMPRESSION: 1. Bilateral total hip arthroplasties in near-anatomic alignment. Reviewed, dictated and finalized at location A. ORTHOPEDIC TEAM PHYSICIAN
[2024-06-30] MEDS: TRANEXAMIC ACID 1,000MG/ISO100 1,000 MG/100 ML BAG 200 MG IVPB (06:50)
[2024-06-30] MEDS: LACTATED RINGERS 1,000 ML 30 ML IV CONT ×2 (06:50→10:59)
[2024-06-30] MEDS: ACETAMINOPHEN 500 MG TABLET 1000 MG PO (06:55)
--- NOTE | 2024-06-30 06:55 | WPDANESEPPF ---
Anes - Initial Pre Proc Eval Procedure: Operation Date: 06/30/24 07:30 Proposed Procedures p Left Total Hip Arthroplasty, Direct Anterior Approach - Hugh Mathis MD Date/Time: 06/30/24 06:55 Surgeon: Hugh Mathis MD Pre Op Diagnosis: oa left hip Patient Data Age: 73 Gender: F Height: 1.61 m Weight: 90 kg Last Vital Signs Temp 37.1 C 05/01/24 12:13 Pulse 61 05/01/24 12:13 Resp 16 05/01/24 12:13 BP 154/55 H 05/01/24 12:13 Pulse Ox 100 05/01/24 12:13 O2 Del Method Room Air 05/01/24 12:13 Allergies Allergy/AdvReac Type Severity Reaction Status Date / Time ampicillin Allergy Unknown Hives Verified 06/20/24 13:33 Penicillins Allergy Unknown RASH Verified 06/20/24 13:33 BEHIND EARS erythromycin base AdvReac Unknown DIARRHEA, Verified 06/20/24 13:33 VOMITING Home Medications Medication Instructions Recorded Confirmed Type lisinopril 20 1 tablet PO QAM 09/09/19 06/20/24 History mg-hydrochlorothiazide 25 mg tablet atorvastatin 10 mg tablet 10 mg PO DAILY 10/25/22 06/20/24 History escitalopram oxalate 10 mg tablet 10 mg PO HS 10/25/22 06/20/24 History acetaminophen 325 mg capsule 650 mg PO Q6H PRN Pain 02/06/24 06/20/24 History tizanidine 4 mg tablet 4 mg PO QHS PRN Muscle Spasm 02/06/24 06/20/24 History omeprazole 40 mg capsule,delayed 40 mg PO QAM 05/01/24 06/20/24 History release cholecalciferol (vitamin D3) 50 50 mcg PO DAILY 05/29/24 06/20/24 History mcg (2,000 unit) capsule mecobalamin (vitamin B12) 5,000 5,000 mcg PO DAILY 05/29/24 06/20/24 History mcg disintegrating tablet multivitamin 1 tablet PO DAILY 05/29/24 06/20/24 History mupirocin 2 % topical ointment 1 applic topical BID 06/20/24 06/20/24 History Patient hx anesthesia problems: none Family hx anesthesia problems: none Results Review: All pre-operative results and documents have been reviewed as part of the pre-operative evaluation. [facility] Past Medical History Medical History (Updated 06/30/24 @ 07:03 by Galindo Albert DO) Acute back pain with sciatica Depression Diverticulitis H/O vaginal delivery Hyperlipidemia Hypertension Low back pain SWAPNA (obstructive sleep apnea) Surgical History Surgical History H/O colonoscopy 2011 H/O dilation and curettage History of right hip replacement Aug 2023 Family History Family History Father Diabetes mellitus Family history of hypercholesterolemia Hypertension Grandparent Diabetes mellitus Carcinoma of colon Family history of malignant neoplasm of breast Mother Diabetes mellitus Family history of hypercholesterolemia Hypertension Social History Social History Smoking status: Never smoker Second hand tobacco smoke exposure: Yes Alcohol intake: current Alcohol use details: occasional Substance use: never Do You Feel Safe in your Home?: Yes Lack of Transportation: No Lack of Food: Never True Current Housing: I Have Housing Concerned About Future Housing: No Difficulty Paying Gas/Electric Bills: No Difficulty Paying for Meds: No Currently Unemployed: No Education: Bachelor's Degree Difficulty w/ Childcare or Family Care: No Living arrangements: with family Additional living arrangements comments: SISTER Occupation/Education: retired Gender identity (if verbalized by the patient): Female Sexual Orientation (if Verbalized by the Patient): Straight or Heterosexual Spiritual care concerns: No Anes - Eval Final PreProcedure Day of Procedure 06/30/24 06:55 Patient weight: obese Heart: regular rate and rhythm Lungs: clear to auscultation Airway: Mallampati scale class II Neurological: alert and oriented Last oral intake: >/= 8 hours ASA classification: III Emergent: no Anesthetic plan: proceed Anesthesia type and monitoring: general ETT and standard monitoring Results Review: All pre-operative results and documents have been reviewed as part of the pre-operative evaluation. Informed Consent: The patient's anesthetic plan and its attendant risks and benefits were discussed with the patient/family/POA. Questions were solicited and answers provided to the satisfaction of the patient/family/POA.
[2024-06-30] MEDS: VANCOMYCIN 1,250 MG/NS 250 ML BAG 166.67 MG IVPB (07:00)
--- NOTE | 2024-06-30 07:15 | WPDHPUPDATE1 ---
History and Physical Update Update Date/Time: 06/30/24 07:15 History and Physical has been reviewed, including an updated exam of the patient. There are NO changes in the patient's condition. Risks, benefits, and alternatives have been discussed and questions answered. Patient agrees to proceed with procedure.
[2024-06-30] MEDS: ceFAZolin 2 GM/D5W 50 ML 2 GM/50 ML BAG IVPB ×2 (07:30→14:51)
[2024-06-30] MEDS: SODIUM CHLORIDE 0.9% IV 37.7 ML, MORPHINE SULFATE INJ (*CRX) 2 MG, ROPivacaine HCL 1% 2... INFILTRATE (08:23)
[2024-06-30] MEDS: TRANEXAMIC ACID 1,000 MG/10 ML AMPUL 1000 MG IV PUSH (10:15)
[2024-06-30] MEDS: ceFAZolin SODIUM 1 GM VIAL 2 GM IV PUSH (10:15)
--- NOTE | 2024-06-30 11:09 | PM.OP ---
Procedure Note - Brief Procedure Note - Brief Date of procedure: 06/30/24 oa left hip Procedure performed: Left anterior total hip arthroplasty Surgeon: HERNANDEZ Camacho Findings: 73-year-old female who underwent left anterior total hip arthroplasty on 06/30. I was involved in the procedure including positioning the patient on the OR table in 1st assisting to the time surgery. Total time spent was 4hours
[2024-06-30] MEDS: fentaNYL CITRATE INJ (*CRX) 100 MCG/2 ML VIAL 25 MCG IV PUSH ×8 (11:17→11:48)
--- NOTE | 2024-06-30 11:17 | P.OP_ITS ---
Procedure Note - Detailed Date of Procedure 06/30/24 Pre-op Diagnosis oa left hip Post-op Diagnosis Same Procedure Performed Left total hip arthroplasty Surgeon Hugh Mathis MD Hostel Manager Saima Anesthesia General Description of Procedure Patient was brought to the operating room and general anesthesia was administered. She received 2 g of Ancef weight based vancomycin 1 g of TXA preoperatively. The feet were padded and placed in the boots and she was transferred to the [facility] [place] table. SCDs were applied to the calves and running during the procedure. The left hip was prepped draped usual fashion. A 10 cm longitudinal incision was made starting 2 cm lateral to the ASIS. Dissection was carried down through the subcutaneous fat to the fascia over the tensor fascia levon which was longitudinally incised and elevated off the anterior 50% of the TFL muscle. Interval between TFL and rectus femoris developed. Crossing branches of ascending lateral femoral circumflex vessels were ligated with suture divided. Retractor was placed anteromedial to the capsule hip abducted and the gluteus minimus elevated off the lateral capsule. Inverted T capsulotomy performed femoral neck osteotomy made according to preoperative templating. The femoral head was very arthritic. Acetabulum was exposed labrum excised. The femur was externally rotated extended and the interval between conjoined tendon and piriformis was incised which allowed the conjoined tendon to recess somewhat and this gave adequate mobility. With the leg back in the horizontal position the acetabulum was exposed. Under fluoroscopic guidance we medialized with a 40 Reamer and reamed up to 46 mm which gave circumferential reaming to the periphery of the acetabular rim. She had a rather shallow socket. We impacted the 46 emphasis cup which seated fully with a very tight fit. Screw was placed in the ilium for additional fixation. Thirty-two inner diameter liner placed. Left leg was externally rotated extended and the femur broached up to a size 3 trial. On initial trialing I could see that we were a little bit high and the neck cut. This lengthened the leg a little bit. The broach was countersunk approximately 3 mm and we calcar planed again. With a gun we torqued the stem and found that there was a little bit of rotational play and we broached to a size 4 Actis which could be broach level of the neck cut without difficulty and this had solid rotational stability. We trialed again and there was appropriate soft tissue tension with the 4 and the high offset +1 and equal leg lengths.. The calcar planing was finalized and the size 4 Actis stem was seated fully without difficulty. We trialed once again with the +1 head and found appropriate soft tissue tension and stability. The ceramic 30 2+1 head was impacted on the clean and dried trunnion after thorough irrigation with a ntibiotic solution. Hip was reduced stability reconfirmed. Local anesthetic cocktail was injected in the periarticular soft tissues. Fascia was closed with running 1. Vicryl drain the subcu skin closed with 2 subcutaneous Vicryl and glue. Estimated blood loss was 250 by Cell Saver and she received 125 back as Cell Saver packed cells and I estimated total blood loss of 300 cc. Two additional g of Ancef 1 of TXA given time wound closure. Her bone quality was excellent and we will allow to be weight-bearing as tolerated postoperatively. She was transferred postop recovery was stable addition.
[2024-06-30] MEDS: HYDROmorphone HCL INJ (*CRX) 1 MG/ML SYR 0.5 MG IV PUSH ×2 (12:05→12:10)
[2024-06-30] MEDS: MIDAZOLAM HCL (*CRX) 2 MG/2 ML VIAL 1 MG IV PUSH (12:37)
--- NOTE | 2024-06-30 13:15 | PC.NURSE ---
This patient, Lolis Ching, was admitted to [facility] Surg Room 309-01. Patient/family oriented to hospital policies and general routines including ID bracelet, bed and alarms, visiting hours, pain management, procedures, bathroom and other care routines, personal items, smoking policy, room service/diet, and visiting hours. Information on how to activate the Rapid Response Team has been discussed. Patient/Family are encouraged to report perceived risks to care and to ask questions if they do not understand what they are told or what they should do.
--- NOTE | 2024-06-30 13:40 | P.CONIM_ITS ---
Assessment and Plan Assessment and plan (1) Primary osteoarthritis of left hip: Code(s): M16.12 - Unilateral primary osteoarthritis, left hip Status: Acute Assessment and Plan: Postop day 0, left hip arthroplasty Hip precautions Joyce catheter per protocol Okay for regular diet Pain control in bowel protocol Ancef x3 and vancomycin Drain care per Orthopedics PT and OT evaluate and treat (2) Anemia: Code(s): D64.9 - Anemia, unspecified Status: Acute Assessment and Plan: Continue home vitamin-B Repeat CBC in the a.m. Okay for Eliquis per surgery (3) Hypertension: Code(s): I10 - Essential (primary) hypertension Status: Acute Assessment and Plan: Continue home medications (4) Hyperlipidemia: Code(s): E78.5 - Hyperlipidemia, unspecified Status: Acute Assessment and Plan: Continue home medications HPI Date of Consult Consult date: 06/30/24 Requesting Physician: Hugh Mathis MD Primary Care Provider: Aaron Gonzalez Daina Consult Narrative Narrative: Lolis Ching is a 73 year old female who had a left anterior total hip arthroplasty earlier today. Preop testing showed her hemoglobin to be 10.5. She had iron studies done which were normal. She also had a B12 and folate study done which was also normal. Patient has had several CBCs since and she has been diagnosed as chronic anemia at this point. Hospitalist has been consulted for medical management for patient. Patient states that pain is controlled on her regimen. She has no other complaints at this time Review of Systems Review of Systems: 12 systems were reviewed and are negativ e except for as per HPI. FORMERLY [facility], [facility] Past Medical History Medical History (Updated 06/30/24 @ 15:34 by Roula Bruce, ONLINE MARKETING MANAGER) Acute back pain with sciatica Depression Diverticulitis H/O vaginal delivery Hyperlipidemia Hypertension Low back pain SWAPNA (obstructive sleep apnea) Surgical History Surgical History H/O colonoscopy 2011 H/O dilation and curettage History of right hip replacement Aug 2023 Family History Family History Father Diabetes mellitus Family history of hypercholesterolemia Hypertension Grandparent Diabetes mellitus Carcinoma of colon Family history of malignant neoplasm of breast Mother Diabetes mellitus Family history of hypercholesterolemia Hypertension Social History Social History Smoking status: Never smoker Second hand tobacco smoke exposure: Yes Alcohol intake: current Drinks per week: 1 Alcohol use details: occasional Substance use: never Do You Feel Safe in your Home?: Yes Lack of Transportation: No Lack of Food: Never True Current Housing: I Have Housing Concerned About Future Housing: Decline to Answer Difficulty Paying Gas/Electric Bills: Decline to Answer Difficulty Paying for Meds: Decline to Answer Currently Unemployed: Decline to Answer Education: Master's Degree or Higher Difficulty w/ Childcare or Family Care: Decline to Answer Living arrangements: with family Additional living arrangements comments: SISTER Occupation/Education: retired Gender identity (if verbalized by the patient): Female Sexual Orientation (if Verbalized by the Patient): Straight or Heterosexual Spiritual care concerns: No Meds Home Medications and Allergies Home Medications Medication Instructions Recorded Confirmed Type lisinopril 20 1 tablet PO QAM 09/09/19 06/30/24 History mg-hydrochlorothiazide 25 mg tablet atorvastatin 10 mg tablet 10 mg PO DAILY 10/25/22 06/30/24 History escitalopram oxalate 10 mg tablet 10 mg PO HS 10/25/22 06/30/24 History acetaminophen 325 mg capsule 650 mg PO Q6H PRN Pain 02/06/24 06/30/24 History tizanidine 4 mg tablet 4 mg PO QHS PRN Muscle Spasm 02/06/24 06/30/24 History omeprazole 40 mg capsule,delayed 40 mg PO QAM 05/01/24 06/30/24 History release cholecalciferol (vitamin D3) 50 50 mcg PO DAILY 05/29/24 06/30/24 History mcg (2,000 unit) capsule mecobalamin (vitamin B12) 5,000 5,000 mcg PO DAILY 05/29/24 06/30/24 History mcg disintegrating tablet multivitamin 1 tablet PO DAILY 05/29/24 06/30/24 History Allergies Allergy/AdvReac Type Severity Reaction Status Date / Time ampicillin Allergy Unknown Hives Verified 06/30/24 07:13 Penicillins Allergy Unknown RASH Verified 06/30/24 07:13 BEHIND EARS erythromycin base AdvReac Unknown DIARRHEA, Verified 06/30/24 07:13 VOMITING Vital Signs Vital Signs - 24 hr 06/30/24 07:24 06/30/24 10:59 06/30/24 11:10 Temperature 97.9 F 97.3 F L Pulse Rate 62 76 74 Respiratory Rate 18 14 14 Blood Pressure 167/67 H 145/64 H 133/59 L Pulse Oximetry 99 100 99 Oxygen Delivery Room Air Simple Face Mask Simple Face Mask Oxygen Flow Rate 6 8 06/30/24 11:15 06/30/24 11:30 06/30/24 11:45 Temperature Pulse Rate 71 68 70 Respiratory Rate 13 10 L 10 L Blood Pressure 134/65 141/64 H 145/60 H Pulse Oximetry 100 100 99 Oxygen Delivery Simple Face Mask Simple Face Mask Simple Face Mask Oxygen Flow Rate 8 8 8 06/30/24 12:00 06/30/24 12:15 06/30/24 12:30 Temperature Pulse Rate 65 73 66 Respiratory Rate 12 13 12 Blood Pressure 141/50 H 143/72 H 138/59 L Pulse Oximetry 100 100 100 Oxygen Delivery Nasal Cannula Nasal Cannula Nasal Cannula Oxygen Flow Rate 2 2 2 06/30/24 12:45 06/30/24 13:00 Temperature Pulse Rate 67 69 Respiratory Rate 12 14 Blood Pressure 116/61 130/64 Pulse Oximetry 100 99 Oxygen Delivery Nasal Cannula Nasal Cannula Oxygen Flow Rate 2 2 Exam Narrative: General: well appearing, appears stated age. HEENT: normocephalic, atraumatic. Mucous membranes moist. EOMI, PERRLA, bilateral sclera anicteric, no conjunctival injection. Neck supple without JVD, lymphadenopathy, or bruit. Respiratory: clear to ascultation bilaterally. No rales/rhonic/wheezes. Cardiovascular: Regular rate and rhythm, normal S1-S2 upon ascultation. No murmurs, rubs, or clicks. PMI is nondisplaced, capillary refill less than 3 second. Abdomen: Soft, round, no pulsatile masses, nondistended and nontender. No rebound, no guarding. No CVA tenderness, no hepatosplenomegaly. Bowel sounds present to all four quadrants. No high pitch or tinkling sounds, resonant to percussion. Extremities: No cyanosis, clubbing, or edema present. Pulses are palpable 2/2. Left hip surgical dressing clean dry intact Neuro: Alert and orientated x 4. PERRLA. Cranial nerves 2-12 intact without focal deficit. Skin: Warm, dry, and intact, without rash, erythema, or lesion. Psych: pleasant, cooperative, normal speech, normal affect, no hallucinations, no dysarthia Quality VTE Prophylaxis VTE prophylaxis: pharmacologic ordered Hospitalist MIPS Advance Care Plan I have confirmed that the patient's Advanced Care Plan is present, code status is documented, or surrogate decision maker is listed in patient medical record.: Yes Medication Reconciliation I have utilized all available resources to obtain, update and review the patients current medications (includes all prescriptions, OTC, herbals, cannabis, and nutritional supplements).: Yes
[2024-06-30] MEDS: SODIUM CHLORIDE 0.9% IV 1,000 ML 125 ML IV CONT (14:51)
[2024-06-30] MEDS: ACETAMINOPHEN 325 MG TABLET 650 MG PO ×3 (14:52→20:35)
[2024-06-30] MEDS: oxyCODONE HCL (*CRX) 5 MG TAB IR PO ×2 (16:59→20:35)
[2024-06-30] MEDS: SENNA/DOCUSATE SODIUM TABLET 2 TAB PO (16:59)
[2024-06-30] MEDS: VANCOMYCIN 1,000 MG/NS 250 ML 1,000 MG/250 ML BAG 250 MG IVPB (18:17)
[2024-06-30] MEDS: ESCITALOPRAM OXALATE 10 MG TABLET PO (20:35)
[2024-06-30] MEDS: FAMOTIDINE 20 MG TABLET PO (20:35)
[2024-07-01] MEDS: ceFAZolin 2 GM/D5W 50 ML 2 GM/50 ML BAG IVPB ×2 (00:08→05:59)
[2024-07-01] MEDS: oxyCODONE HCL (*CRX) 5 MG TAB IR PO ×3 (00:10→08:01)
[2024-07-01] MEDS: ACETAMINOPHEN 325 MG TABLET 650 MG PO ×3 (00:10→08:00)
[2024-07-01 02:49] VITALS: BP 130/56; PULSE 74; RESP 18; TEMP 36.2; O2SAT 99
[2024-07-01] MEDS: DOXYCYCLINE HYCLATE 100 MG TABLET PO (05:59)
[2024-07-01 06:26] LABS: Basophils Percent Auto 0.2 % (0.2-1.2); Eosinophils Percent Auto 0.1 % (0-4.4); Hematocrit 27.9 % (37.0-47.0); Hemoglobin 8.6 g/dL (12.0-15.0); Immature Granulocyte Absolute 0.04 K/mm3 (0.00-0.031); Immature Granulocyte Percent A 0.4 % (0-0.5); Lymphocytes Absolute Auto 1.37 K/mm3 (0.9-3.2); Lymphocytes Percent Auto 15.3 % (18.3-44.2); Mean Corpuscular HGB Conc 30.8 g/dl (32-36); Mean Corpuscular Hemoglobin 27.3 pg (26-34); Mean Corpuscular Volume 88.6 fl (80-100); Mean Platelet Volume 9.9 fl (7.4-10.4); Monocytes Percent Auto 10.8 % (2.6-8.5); Neutrophils Absolute Auto 6.6 K/mm3 (1.3-6.7); Neutrophils Percent Auto 73.2 % (45.5-73.1); Platelet Count Result 208 k/mm3 (150-375); Red Blood Count 3.15 M/mm3 (4.2-5.4); Red Cell Distribution Width 14.2 % (11.5-14.5)
[2024-07-01 06:28] VITALS: BP 144/62; PULSE 75; RESP 18; TEMP 36.6; O2SAT 99
[2024-07-01 06:38] LABS: Anion Gap 9 mmol/L (4-12); Blood Urea Nitrogen 27 mg/dL (7-17); Calcium 7.9 mg/dL (8.4-10.2); Carbon Dioxide 25 mmol/L (22-30); Chloride 100 mmol/L (98-107); Estimated CRCL calculation 44 ml/min; Estimated Glomerular Filt Rate 49; Glucose 148 mg/dL (65-110); Potassium 3.8 mmol/L (3.4-5.0); Sodium 134 mmol/L (137-145)
--- NOTE | 2024-07-01 06:58 | P.PNOP_ITS ---
Subjective Subjective Date/Time Seen: 07/01/24 06:58 Interval history: Postop day 1 patient is alert. She vital signs are stable. Blood pressure is maintained labs are noted. Hemoglobin is 8.6. Creatinine is 1.10. Drain has been removed. Pain Is well controlled. Patient was up walking with PT and is comfortable. Will plan have the patient this morning, once IV antibiotics have been completed she will be discharged home Objective Data Vital Signs Vital Signs: Vital Signs - 24 hr 06/30/24 07:24 06/30/24 10:59 06/30/24 11:10 Temperature 97.9 F 97.3 F L Pulse Rate 62 76 74 Respiratory Rate 18 14 14 Blood Pressure 167/67 H 145/64 H 133/59 L Pulse Oximetry 99 100 99 Oxygen Delivery Room Air Simple Face Mask Simple Face Mask Oxygen Flow Rate 6 8 06/30/24 11:15 06/30/24 11:30 06/30/24 11:45 Temperature Pulse Rate 71 68 70 Respiratory Rate 13 10 L 10 L Blood Pressure 134/65 141/64 H 145/60 H Pulse Oximetry 100 100 99 Oxygen Delivery Simple Face Mask Simple Face Mask Simple Face Mask Oxygen Flow Rate 8 8 8 06/30/24 12:00 06/30/24 12:15 06/30/24 12:30 Temperature Pulse Rate 65 73 66 Respiratory Rate 12 13 12 Blood Pressure 141/50 H 143/72 H 138/59 L Pulse Oximetry 100 100 100 Oxygen Delivery Nasal Cannula Nasal Cannula Nasal Cannula Oxygen Flow Rate 2 2 2 06/30/24 12:45 06/30/24 13:00 06/30/24 14:39 Temperature Pulse Rate 67 69 Respiratory Rate 12 14 Blood Pressure 116/61 130/64 Pulse Oximetry 100 99 Oxygen Delivery Nasal Cannula Nasal Cannula Room Air Oxygen Flow Rate 2 2 06/30/24 13:15 06/30/24 13:30 06/30/24 14:00 Temperature 97.3 F L 96.0 F L Pulse Rate 58 L 72 70 Respiratory Rate 16 18 16 Blood Pressure 132/59 L 131/50 L 128/57 L Pulse Oximetry 100 100 100 Oxygen Delivery Oxygen Flow Rate 06/30/24 15:00 06/30/24 13:30 06/30/24 21:49 Temperature 96.4 F L 98.1 F Pulse Rate 76 68 Respiratory Rate 18 18 Blood Pressure 179/97 H 167/73 H Pulse Oximetry 98 98 Oxygen Delivery Room Air Oxygen Flow Rate 07/01/24 02:49 07/01/24 01:00 07/01/24 06:28 Temperature 97.2 F L 97.9 F Pulse Rate 74 75 Respiratory Rate 18 18 Blood Pressure 130/56 L 144/62 H Pulse Oximetry 99 99 Oxygen Delivery CPAP Oxygen Flow Rate Intake/Output Intake/Output: Intake & Output 06/29/24 06/29/24 06/30/24 07/01/24 00:59 23:59 23:59 23:59 Intake Total 1040 50 Output Total 60 40 Balance 980 10 Meds/Results Medications: Active Medications Generic Name Dose Route Start Last Admin Trade Name Freq PRN Reason Stop Dose Admin Acetaminophen 650 mg 06/30/24 13:00 07/01/24 05:59 Acetaminophen 325 Mg Tablet PO 650 mg Q4H STACEY Administration Apixaban 2.5 mg 07/01/24 09:00 Apixaban 2.5 Mg Tablet PO Q12HR STACEY Atorvastatin Calcium 10 mg 07/01/24 09:00 Atorvastatin 10 Mg Tablet PO DAILY STACEY Celecoxib 200 mg 07/01/24 09:00 Celecoxib 200 Mg Capsule PO DAILY STACEY Cyanocobalamin 5,000 mcg 07/01/24 09:00 Cyanocobalamin 1,000 Mcg Tablet PO QAM STACEY Diphenhydramine HCl 25 mg 06/30/24 13:04 Diphenhydramine Hcl Inj 50 Mg/Ml Vial IV PUSH Q6H PRN Itching Doxycycline Hyclate 100 mg 07/01/24 07:00 07/01/24 05:59 Doxycycline Hyclate 100 Mg Tablet PO 100 mg Q12H STACEY Administration Escitalopram Oxalate 10 mg 06/30/24 21:00 06/30/24 20:35 Escitalopram Oxalate 10 Mg Tablet PO 10 mg HS STACEY Administration Famotidine 20 mg 06/30/24 21:00 06/30/24 20:35 Famotidine 20 Mg Tablet PO 20 mg Q12HR STACEY Administration Hydralazine HCl 10 mg 06/30/24 19:42 Hydralazine Hcl 20 Mg/Ml Vial IV PUSH Q8H PRN Blood Pressure - High Sodium Chloride 1,000 mls @ 125 mls/hr 06/30/24 13:04 07/01/24 00:02 Normal Saline Iv IV CONT Not Given .Q8H STACEY Cefazolin Sodium 2 gm in 50 mls @ 100 mls/hr 06/30/24 15:00 07/01/24 05:59 Ancef 2 Gm/D5w 50 Ml IVPB 07/01/24 07:29 100 mls/hr Q8H STACEY Administration Vancomycin HCl 1,000 mg in 250 mls @ 250 mls/hr 06/30/24 19:00 06/30/24 19:17 Vancomycin 1,000 Mg/Ns 250 Ml IVPB 07/01/24 07:59 Infused Q12H [facility] Infusion Morphine Sulfate 2 mg 06/30/24 13:04 Morphine Sulfate (*Crx) 2 Mg/Ml Inj IV PUSH Q2H PRN Breakthrough Pain Rated 4-6 or NPO Naloxone HCl 0.1 mg 06/30/24 13:04 Naloxone Hcl 0.4 Mg/Ml Vial IV PUSH Q2M PRN Opiate Reversal Ondansetron HCl 4 mg 06/30/24 13:04 Ondansetron Inj 4 Mg/2 Ml Vial IV PUSH Q4H PRN Nausea And Vomiting Oxycodone HCl 5 mg 06/30/24 17:00 07/01/24 05:59 Oxycodone Hcl (*Crx) 5 Mg Tab Ir PO 5 mg Q4HR STACEY Administration Oxycodone HCl 5 mg 06/30/24 13:04 Oxycodone Hcl (*Crx) 5 Mg Tab Ir PO Q4H PRN Pain Rated 7-10 Polyethylene Glycol 17 gm 07/01/24 09:00 Polyethylene Glycol 3350 17 Gm Powd.Pack PO QAM [facility] Senna/Docusate Sodium 2 tab 06/30/24 17:00 06/30/24 16:59 Senna/Docusate Sodium Tablet PO 2 tab BID [facility] Administration Tizanidine HCl 4 mg 06/30/24 13:41 Tizanidine Hcl 4 Mg Tablet PO QHS PRN Muscle Spasm Vitamin D 2,000 units 07/01/24 09:00 Cholecalciferol 1,000 Units Tablet PO DAILY [facility] Radiology Results: ITS Impressions Hip/Pelvis X-Ray 06/30/24 12:20 IMPRESSION: 1. Bilateral total hip arthroplasties in near-anatomic alignment. Intraoperative X-Ray 06/30/24 15:44 IMPRESSION: 1. Total left hip arthroplasty in near-anatomic alignment. Labs Labs: Laboratory Results - last 24 hr 07/01/24 05:57 WBC 9.0 RBC 3.15 L Hgb 8.6 L Hct 27.9 L MCV 88.6 MCH 27.3 MCHC 30.8 L RDW 14.2 Plt Count 208 MPV 9.9 Immature Gran % (Auto) 0.4 Neut % (Auto) 73.2 H Lymph % (Auto) 15.3 L Cloud % (Auto) 10.8 H Eos % (Auto) 0.1 Baso % (Auto) 0.2 Lymph # (Auto) 1.37 Cloud # (Auto) 1.0 H Eos # (Auto) 0.0 Baso # (Auto) 0.0 Abs Immat Gran (auto) 0.04 H Absolute Neuts (auto) 6.6 Absolute Nucleated RBC 0.000 Nucleated RBC % 0.0 Sodium 134 L Potassium 3.8 Chloride 100 Carbon Dioxide 25 Anion Gap 9 BUN 27 H Creatinine 1.10 H Estim Creat Clear Calc 44 Estimated GFR 49 L Glucose 148 H Calcium 7.9 L
--- NOTE | 2024-07-01 07:08 | P.DS_ITS ---
DS: Admitting Diagnosis Discharge Date 07/01 Admitting Diagnosis left hip DJD DS: Discharge Diagnosis Discharge Diagnosis (1) Primary osteoarthritis of left hip: Code(s): M16.12 - Unilateral primary osteoarthritis, left hip Status: Acute DS: Summary Hospital Course Hospital Course: 73-year-old female underwent left anterior total hip arthroplasty on 06/30. Underwent the procedure without complications. Postoperatively she has been afebrile vital signs stable neurovascularly she is intact. She was up walking with physical therapy the day of surgery. She is weight-bearing as tolerated. Pain is well controlled with scheduled Tylenol every 4 hours and oxycodone 5 mg. She is on Eliquis for DVT prophylaxis. Morning of postop day 1 the patient was alert and comfortable. Hemoglobin was 8.6. Patient has been maintaining her blood pressure with the lower hemoglobin. She is not having any lightheadedness or dizziness when she stands. No chest pain shortness of breath. She tolerates mild anemia well. Dressing is dry and intact. Drain has been removed. Patient will be discharged on 07/01. She was advised to keep leg elevated home prevent swelling. She will go home with a 10 day course doxycycline. She will also go home with Senokot and MiraLax for constipation. She is going to be on Celebrex 100 mg daily for 10 days for HO prophylaxis. Creatinine the morning postop day 1 was 1.1. Patient was advised any questions or concerns she is to call the office otherwise we will see her at her appointments. Time Spent with Patient Time attestation: Total time spent providing and/or coordinating discharge services: DS: Data Data Completed and Pending Labs on day of discharge: Labs from last 24 hours 07/01/24 05:57 WBC 9.0 RBC 3.15 L Hgb 8.6 L Hct 27.9 L MCV 88.6 MCH 27.3 MCHC 30.8 L RDW 14.2 Plt Count 208 MPV 9.9 Immature Gran % (Auto) 0.4 Neut % (Auto) 73.2 H Lymph % (Auto) 15.3 L [place] % (Auto) 10.8 H Eos % (Auto) 0.1 Baso % (Auto) 0.2 Lymph # (Auto) 1.37 [place] # (Auto) 1.0 H Eos # (Auto) 0.0 Baso # (Auto) 0.0 Abs Immat Gran (auto) 0.04 H Absolute Neuts (auto) 6.6 Absolute Nucleated RBC 0.000 Nucleated RBC % 0.0 Sodium 134 L Potassium 3.8 Chloride 100 Carbon Dioxide 25 Anion Gap 9 BUN 27 H Creatinine 1.10 H Estim Creat Clear Calc 44 Estimated GFR 49 L Glucose 148 H Calcium 7.9 L Discharge Plan Discharge Patient Disposition: Home, Self-Care Discharge Instructions: HUGH MATHIS M.D [facility] [address] [address] [address] [place] [address] POST-OPERATIVE DISCHARGE INSTRUCTIONS ANTERIOR TOTAL HIP ARTHROPLASTY 1. Move toes/feet up and down every hour while awake. 2. Be up walking every hour while awake. 3. Use walker contact center specialist if instructed to use walker contact center specialist.When you are allowed to use the cane, use the cane in the opposite hand. 4. When resting, do not rest in the chair. Rather, lie on your back, with back flat, and the leg elevated above heart to minimize swelling. You may put a pillow under your head. Do not rest in a chair. Resting in the chair results in swelling in the leg. Significant swelling could indicate a blood clot and if this occurs, call the office (or go to the ER) to have a venous ultrasound performed. Its ok to sit in the chair to eat and use the toilet and to receive a guest but sitting in a chair will cause your leg to swell. so try to minimize sitting in a chair. 5. Wound Care: Apply a folded 4x4 sponge to incision and hold with crossing strips of 1 inch Transpore tape. 6. May shower. Remove dressing before shower and reapply dressing after shower. Stand Alone Forms: General Discharge Instructions Follow-up/Referrals: Hugh Mathis MD [Physician] - Keep Reg. Scheduled Appt. Discharge Medications: New acetaminophen 325 mg Tablet 650 mg PO Q4H Qty: 90 0RF Eliquis 2.5 mg Tablet 2.5 mg PO Q12HR Qty: 70 0RF celecoxib [Celebrex] 200 mg Capsule 200 mg PO DAILY Qty: 10 0RF polyethylene glycol 3350 [Miralax] 17 gram Powder In Packet 17 g PO QAM Qty: 30 0RF sennosides-docusate sodium [Senokot-S] 8.6-50 mg Tablet 2 tab PO BID Qty: 60 0RF doxycycline hyclate 100 mg Tablet 100 mg PO Q12H Qty: 20 0RF oxycodone 5 mg Tablet 5 mg PO Q4H PRN (Reason: Pain Rated 7-10) Qty: 40 0RF Continued escitalopram oxalate 10 mg tablet 10 mg PO HS atorvastatin 10 mg tablet 10 mg PO DAILY tizanidine 4 mg tablet 4 mg PO QHS PRN (Reason: Muscle Spasm) lisinopril-hydrochlorothiazide 20-25 mg tablet 1 tablet PO QAM multivitamin Tablet 1 tablet PO DAILY mecobalamin (vitamin B12) 5,000 mcg tablet,disintegrating 5,000 mcg PO DAILY cholecalciferol (vitamin D3) 50 mcg (2,000 unit) capsule 50 mcg PO DAILY omeprazole 40 mg capsule,delayed release(DR/EC) 40 mg PO QAM Discontinued acetaminophen 325 mg capsule 650 mg PO Q6H PRN (Reason: Pain) Attending physician on admission: Hugh Mathis
[2024-07-01] MEDS: VANCOMYCIN 1,000 MG/NS 250 ML 1,000 MG/250 ML BAG 250 MG IVPB (07:58)
[2024-07-01] MEDS: FAMOTIDINE 20 MG TABLET PO (07:59)
[2024-07-01] MEDS: ATORVASTATIN 10 MG TABLET PO (07:59)
[2024-07-01] MEDS: APIXABAN 2.5 MG TABLET PO (08:00)
[2024-07-01] MEDS: CYANOCOBALAMIN 1,000 MCG TABLET 5000 MCG PO (08:00)
[2024-07-01] MEDS: CHOLECALCIFEROL 1,000 UNITS TABLET 2000 UNITS PO (08:00)
[2024-07-01] MEDS: polyethylene glycoL 3350 17 GM POWD.PACK PO (08:00)
[2024-07-01] MEDS: SENNA/DOCUSATE SODIUM TABLET 2 TAB PO (08:00)
[2024-07-01] MEDS: CELECOXIB 200 MG CAPSULE PO (08:01)
[2024-07-01] MEDS: SODIUM CHLORIDE 0.9% IV 1,000 ML 125 ML IV CONT (08:03)
--- NOTE | 2024-07-01 08:08 | WPDANESPN ---
Anes - Prog Note Post-Op Date/Time: 07/01/24 08:08 Cardiovascular status: normal Respiratory status: normal Airway patency: baseline Mental status: baseline Post-Op hydration status: normal Vital Signs: Last Vital Signs Temp 36.6 C 07/01/24 06:28 Pulse 75 07/01/24 06:28 Resp 18 07/01/24 06:28 BP 144/62 H 07/01/24 06:28 Pulse Ox 99 07/01/24 06:28 O2 Del Method CPAP 07/01/24 01:00 O2 Flow Rate 2 06/30/24 13:00 Pain Score (VAS): 10/06 I/O: Intake & Output 06/30/24 07/01/24 07/01/24 23:59 07:59 15:59 Intake Total 990 50 Output Total 60 40 Balance 930 10 Laboratory Tests 07/01/24 05:57 07/01/24 05:57 07/01/24 05:57 WBC 9.0 RBC 3.15 L Hgb 8.6 L Hct 27.9 L MCV 88.6 MCH 27.3 MCHC 30.8 L RDW 14.2 Plt Count 208 MPV 9.9 Immature Gran % (Auto) 0.4 Neut % (Auto) 73.2 H Lymph % (Auto) 15.3 L [place] % (Auto) 10.8 H Eos % (Auto) 0.1 Baso % (Auto) 0.2 Lymph # (Auto) 1.37 [place] # (Auto) 1.0 H Eos # (Auto) 0.0 Baso # (Auto) 0.0 Abs Immat Gran (auto) 0.04 H Absolute Neuts (auto) 6.6 Absolute Nucleated RBC 0.000 Nucleated RBC % 0.0 Sodium 134 L Potassium 3.8 Chloride 100 Carbon Dioxide 25 Anion Gap 9 BUN 27 H Creatinine 1.10 H Estim Creat Clear Calc 44 Estimated GFR 49 L Glucose 148 H Calcium 7.9 L Post-procedural complaints: none Patient Feedback: Patient satisfied with anesthetic care.
[2024-07-01 10:49] VITALS: BP 145/68; PULSE 66; RESP 18; TEMP 36.4; O2SAT 98
--- NOTE | 2024-07-01 12:24 | PC.NURSE ---
Patient resting in bed upon morning assessment and medication administration. Dressing CDI. No complaints of pain. SCD on and functioning. Incentive spirometry education given and proper use observed.
== END 2024-07-01 12:05 | disposition home or self-care (01) ==
LOC: ANHSURGERY 06:03 → ANH3MEDSUR 15:21
PROVIDERS: Orthopaedic Surgery; Physician Assistant Surgical; Visit Provider Nurse Practitioner Acute Care
PROC: (CPT 27130; principal; 2024-06-30 07:30)
DX: M16.12 Unilateral primary osteoarthritis, left hip (principal); E78.5 Hyperlipidemia, unspecified; I10 Essential (primary) hypertension; D64.9 Anemia, unspecified; F32.A Depression, unspecified; G47.33 Obstructive sleep apnea (adult) (pediatric); E66.9 Obesity, unspecified; Z68.35 Body mass index [BMI] 35.0-35.9, adult; Z98.890 Other specified postprocedural states; Z87.19 Personal history of other diseases of the digestive system; Z80.0 Family history of malignant neoplasm of digestive organs; Z80.3 Family history of malignant neoplasm of breast
CPT/HCPCS: 27130; 36415; 73501; 80048; 85025; 97110; 97116; 97161; 97165; 97535; 99199; A9270; C1776; J0171; J0690; J1100; J1171; J1596; J1885; J2003; J2250; J2270; J2405; J2704; J2795; J3010; J3370; J7030; J7120

== ENCOUNTER 2024-11-28 10:16 | Outpatient (CLI) | payer MEDICARE, SELFPAY ==
--- OUTSIDE RECORDS SUMMARY | 2024-11-28 10:41 | XMS_ITS | Clinical Summary ---
Author Organization [facility] Address [address] [place] [address] Care Team Providers Care Endodontist Name Role Phone Unavailable Primary Care Provider Unavailabl e Social History Tobacco Use Types Packs/Day Years Used Date Smoking Tobacco: Never Assessed Comments Unknown Sex and Gender Information Value Date Recorded Sex Assigned at Not on file Legal Sex Female 3:05 PM CDT Gender Identity Not on file Sexual Orientation Not on file Plan of Treatment Health Maintenance Due Date Last Done Comments DEXA Bone Density 1950 Hepatitis C Virus (HCV) Screening 1950 Colonoscopy 1996 Colorectal Cancer Screening 1996 Cologuard 2001 Immunochemical Fecal Occult Blood 2001 Mammogram 2001 Pneumococcal Immunization (5 0+ years) (2 of 2 - PPSV23) 07/31/2019 07/31/2018 Influenza Immunization (#1) 04/27/202405/27, 06/19/2014 SARS-COV-2 Immunization ( - season) 2024 Respiratory Syncytial Virus (RSV) Immunization (Adult) (1 - 1-dose 75+ series) 2026 DTaP/Tdap/Td Immunization Discontinued 02/15/2009 TdaP Immunization Completed 02/15/2009 Pneumococcal Immunization Combined Discontinued 07/31/2018 Zoster Immunization Completed 10/02/2018, 07/31/2018, 06/24/2012 Hepatitis B Immunization Aged Out No longer eligible based on patient's age to complete this topic Meningococcal Immunization (ACWY) Aged Out No longer eligible based on patient's age to complete this topic Rotavirus Immunization Aged Out No lo nger eligible based on patient's age to complete this topic
--- OUTSIDE RECORDS SUMMARY | 2024-11-28 10:41 | XMS_ITS | Encounter Summary ---
Author Organization [facility] Address [address] [place] [address] Care Team Providers Care Rn Mental Health Name Role Phone Aaron Lama MD Primary Care Provide r Clara Lugo MD Unavailable [phone] Lisa Clarke NP Unavailable [phone] Ji Dominique MD Unavailable Andrea Hill MD Unavailable [phone] Hugh Mathis MD Unavailable [phone] Chirag Max MD Unavailable [phone] Encounter Details Date Type Department Care Team (Late st Contact Info) Description 05/22/2024 Orders Only [facility] Health Information Management [address] [place] [address] Scanning, Provider Social History Tobacco Use Types Packs/Day Years Used Date Smoking Tobacco: Never Smokeless Tobacco: Never Alcohol Use Standard Drinks/Week Comments Yes 0 (1 standard drink = 0.6 oz pur e alcohol) AUDIT-C Answer Date Recorded Q1: How often do you have a drink containing alc ohol? Monthly or less 04/14/2024 Q2: How many drinks containi ng alcohol do you have on a typical day when you are drinking? 1 or 2 04/14/2024 Q3: How often do you have si x or more drinks on one occasion? Never 04/14/2024 PHQ-2 Answer Date Recorded PHQ-2 Total Score (If total score is 3 or more points, staff should administer the PHQ-9) 0 05/08/2024 Personal Safety Answer Date Recorded Have you ever been in or are you currently in a harmful physical or emotional relationship or is someone making you feel afraid or unsafe? Denies 04/14/2024 Comments No Sex and Gender Information Value Date Recorded Sex Assigned at Not on file Legal Sex Female 3:46 AM REHABILITATION ATTENDANT Gender Identity Not on file Sexual Orientation Not on file documented as of this encounter Plan of Treatment Not on file documented as of this encounter Procedures Procedure Name Priority Date/Time Associated Diagnosis Comments SCAN - LABS 05/22/2024 documented in this encounter Results * SCAN - LABS (05/22/2024) us Provider Scanning Final Result documented in this encounter Visit Diagnoses Not on filedocumented in this encounter Care Teams Rn Mental Health Relationship Specialty [place] [id number] [address] PCP - General Family Medicine 11/23/21 Clara Lugo MD [address] [address] Consulting Physician Obstetrics and Gynecology 11/29/21 Lisa Clarke NP [address] [address] Nurse Practitioner Pulmonary Disease 11/29/21 Ji Dominique MD [address] [place] [address] Consulting Physician Sports Medicine 11/07/22 Andrea Hill MD [address] [place] [address] Consulting Physician Neurosurgery 05/09/23 Hugh Mathis MD [address] [place] [address] Consulting Physician Orthopedic Surgery 07/17/23 Chirag Max MD [address] [facility] [address] [place] [address] Consulting Physician Nephrology 06/10/24 documented as of this encounter
--- OUTSIDE RECORDS SUMMARY | 2024-11-28 10:41 | XMS_ITS | Clinical Summary ---
Author Organization [facility] Address [address] [place] [address] Care Team Providers Care Abrasive Mixer Name Role Phone Aaron Lama MD Primary Care Provide r Clara Lugo MD Unavailable [phone] Lisa Clarke NP Unavailable Ji Dominique MD Unavailable Andrea Hill MD Unavailable Hugh Mathis MD Unavailable [phone] Chirag Max MD Unavailable [phone] Allergies Active Allergy Reactions Criticality Noted Date Comments Erythromycin Nausea only,Vomiting Low Reaction: Nausea, Vomiting, , Reaction: Nausea, Vomiting, Penicillins Hives,Rash High Reaction: Hives, Skin Rash, , Reaction: Hives, Medications acetaminophen (TYLENOL) 325 mg tablet PLEASE SEE ATTACHED FOR DETAILED DIRECTIONS 4 Active tiZANidine (ZANAFLEX) 4 mg tablet Take 1 tablet (4 mg total) by mouth every 6 (six) hours as needed for muscle spasms 60 tablet 2 4 Active escitalopram (LEXAPRO) 10 mg tablet TAKE 1 TABLET BY MOUTH EVERY DAY 90 tablet 4 4 Active atorvastatin (LIPITOR) 10 mg tablet TAKE 1 TABLET BY MOUTH EVERY DAY 90 tablet 3 4 Active omeprazole (PriLOSEC) 40 mg capsule TAKE 1 CAPSULE (40 MG TOTAL) BY MOUTH DAILY. 100 capsule 1 4 Active lisinopril-hydr oCHLOROthiazide (ZESTORETIC) 20-25 mg per tablet TAKE 1 TABLET BY MOUTH EVERY DAY 100 tablet 1 4 Active tirzepatide, weight loss, (ZEPBOUND) 2.5 mg/0.5 mL pen injector Inject 0.5 mL (2.5 mg total) under the skin once a week 2 mL 11 5 Active Active Problems Problem Noted Date Diagnosed Date Multiple thyroid nodules 08/06/2024 Assessment & Plan (08/06/2024 11:49 AM HEAD SCREEN WORKER): Clinically stable with no evidence thyroid dysfunction Monitor clinically and consider repeat imaging if clinically indicated Chronic bilateral low back pain with left-sided sciatica 08/06/2024 Assessment & Plan (08/06/2024 11:52 AM HEAD SCREEN WORKER): Controlled/stable, continue current management Continue Zanaflex p.r.n. 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, or unspecified(403.10) 08/06/2024 Assessment & Plan (08/06/2024 11:53 AM HEAD SCREEN WORKER): BP Readings from Last 3 Encounters: 08/06/24 143/84 05/08/24 131/77 04/14/24 (!) 188/63 Controlled/stable, continue current management Continue lisinopril-hydrochlorothiazide Stage 3a chronic kidney disease 08/06/2024 Assessment & Plan (08/06/2024 11:51 AM HEAD SCREEN WORKER): Stable, monitor Follow up with Nephrology Class 2 severe obesity due t o excess calories with serious comorbidity and body mass index (BMI) of 36.0 to 36.9 in adult 08/06/2024 Assessment & Plan (08/06/2024 11:50 AM HEAD SCREEN WORKER): The patient is a candidate for GLP 1 agonist therapy based on BMI and obesity related complications including arthritis, prediabetes, hypertension and sleep apnea However, the patient is aware that this may not guarantee insurance coverage We will take care of any necessary prior authorization paperwork and hopefully get medication approved Discussed common side effects like nausea, loss of appetite Will titrate dose up as tolerated to lowest effective dose Anemia, unspecified 05/08/2024 Lumbar radiculopathy 03/14/2023 Assessment & Plan (08/06/2024 11:52 AM HEAD SCREEN WORKER): Controlled/stable, continue current management Continue Zanaflex p.r.n. Consider consultation to physical therapy or Pain Management if worsening Primary osteoarthritis of left hip 01/29/2023 Spinal stenosis of lumbar re gion without neurogenic claudication 11/07/2022 Assessment & Plan (08/06/2024 11:52 AM HEAD SCREEN WORKER): Controlled/stable, continue current management Continue Zanaflex p.r.n. Consider consultation to physical therapy or Pain Management if worsening Renal cysts, acquired, bilateral 11/07/2022 Overview (11/07/2022): Incidental finding on Lumbar MRI 11/01/22 Assessment & Plan (08/06/2024 11:51 AM HEAD SCREEN WORKER): Incidental finding on lumbar MRI 11/01/2022 Likely benign Will continue to monitor periodically with imaging if clinically indicated Lumbar degenerative disc disease 11/07/2022 Primary osteoarthritis of right hip 11/07/2022 Prediabetes 06/09/2022 Assessment & Plan (08/06/2024 11:49 AM HEAD SCREEN WORKER): Lab Results Component Value Date HGBA1C 6.3 (H) 07/26/2023 Stable - monitor Focus on therapeutic lifestyle changes - diet/exercise - to maintain normal sugar levels and prevent progression to diabetes Primary osteoarthritis of left shoulder 12/09/19 Assessment & Plan (12/08/2021 3:16 PM CDT): Patient has fairly advanced arthritis of her glenohumeral joint on the left side. She is likely facing shoulder replacement surgery in the not too distant future. However she currently has some secondary cuff tendinitis as well and might benefit from cortisone. Since she is most symptomatic left side she elected undergo a cortisone injection for her left side today. Right rotator cuff tendinitis 12/08/2021 Assessment & Plan (12/08/2021 3:16 PM CDT): Patient has rotator cuff tendinitis of the right shoulder with impingement. She did not feel she was symptomatic enough to warrant an injection on the right side but would like physical therapy which is been beneficial in the past. Therapy was prescribed. History of diverticulitis 11/29/2021 Overview (11/29/2021): Previous PCP would just call in antibiotics GERD (gastroesophageal reflux disease) Assessment & Plan (08/06/2024 11:51 AM HEAD SCREEN WORKER): Controlled/stable, continue current management Patient tried weaning off PPI therapy but had significant rebound symptoms and resumed PPI therapy right away I did encourage her to try weaning herself off again in the future as the rebound symptoms will generally improve within 1-2 weeks Otherwise if she does find that her symptoms persist without PPI therapy then she can resume it chronically Bilateral plantar fasciitis 09/22/2021 SWAPNA (obstructive sleep apnea) 11/23/2017 Assessment & Plan (08/06/2024 11:53 AM HEAD SCREEN WORKER): Patient continues to receive benefit from CPAP Follow-up with Pulmonology Hyperlipidemia 01/10/2014 Overview (12/01/2016): Hyperlipidemia LDL goal < 130 Assessment & Plan (08/06/2024 11:49 AM HEAD SCREEN WORKER): Continue statin therapy Resolved Problems Problem Noted Date Diagnosed Date Resolved Date Positive colorectal cancer s creening using Cologuard test 02/26/2024 08/06/2024 Cervical myelopathy 05/09/2023 08/06/20 Elevated hemoglobin A1c 06/03/201807/27 Abnormal findings on radiolo gical examination of gastrointestinal tract 03/03/2014 08/06/2024 Left lower quadrant pain 03/03/201406/2024 Hypertension 01/10/2014 08/06/2024 Overview (11/30/2016): Hypertension Encounters Date Type Department Care Team Description 10/22/2024 Telephone [facility] at [address] [address] Aaron Lama MD Symptom Based Call 09/19/2024 Telephone [facility] at [address] [address] Aaron Lama MD Prior Auth 09/17/2024 Telephone [facility] at [address] [address] Aaron Lama MD 09/15/[address] [facility] at [address], [place] [phone] Salvador Chung MD from Last 3 Months Immunizations Immunization Administration Dates Next Due COVID-19 mRNA (Alphatec Spine) 0.3 m L (30 mcg) vaccine (12 years and up) 07/30/2023 Influenza, Quad, Adjuvantate d, Intramuscular 05/26/2021 Influenza, Quadrivalent, Hig h Dose, Preservative Free, Intrr 06/09/2022,06/17/2020 Influenza, Quadrivalent, Spl it, Preservative Free, Intramuscular 07/26/2023,05/09/2016,05/06/2015 Influenza, Split 06/21/2012 Influenza, Trivalent, High D ose, Split, Preservative Free, Intramuscular 05/08/2024,06/12/2019,06/03/2018,06/08 Influenza, Trivalent, IM (MDV) 06/19/2014,2013,05/16/2011 Influenza, Trivalent, Preser vative Free, Intramuscular 05/27/2013 Influenza, Unspecified 05/27/2021,2019,05/27/2019,06/10 Pfizer SARS-CoV-2 Monovalent Vaccination (12+ Yrs) PURPLE 02/13/2022,10/25/2020 Pfizer Sars-Cov-2 Bivalent V accination (12+ YRS) 10/27/2022 Pneumococcal Conjugate PCV 13 07/31/2018, 017 Pneumococcal Polysaccharide PPV23 06/09/2022 Tdap 02/15/2009,02/15/2009 ZOSTER LIVE 06/24/2012 ZOSTER Recombinant 10/02/2018,07/31/2018 Surgical History Surgery Date Site/Laterality Comments TOTAL HIP ARTHROPLASTY 09/27/2023 Right COLONOSCOPY TOTAL HIP ARTHROPLASTY 06/30/[address] Hugh Mathis Medical History Medical History Date Comments Hx Other Medical D&C GERD (gastroesophageal reflux disease) Arthritis Hypertension Sleep apnea December 25, 2013 Depression Abnormal findings on radiolo gical examination of gastrointestinal tract 03/03/2014 Left lower quadrant pain 03/03/2014 Positive colorectal cancer screening using Colog uard test 02/26/2024 Family History Medical History Relation Name Comments Coronary artery disease Father Teddy Ann-Marie nary artery disease; Diabetes Father Teddy Diabetes type II Father Teddy Diabetes -T ype 2; Heart attack Father Teddy Kidney disease Father Teddy Renal disease ; Arthritis Mother Iris Cancer Mother Iris Diabetes Mother Iris Diabetes type II Mother Iris Diabetes -T ype 2; Kidney disease Mother Iris Renal disease ; Breast cancer Other Family history of Cancer -breast; Diabetes type II Sister 1 Diabetes -T ype 2; Diabetes Sister 2 Randy Relation Name Status Comments Father Teddy Mother Iris Other Sister 1 Sister 2 Aug Social History Tobacco Use Types Packs/Day Years Used Date Smoking Tobacco: Never Cigarettes Smokeless Tobacco: Never Tobacco Cessation:Counseling Given: Not Answered Alcohol Use Standard Drinks/Week Comments Yes 0 [...] points, staff should administer the PHQ-9) 0 08/06/2024 Personal Safety Answer Date Recorded Have you ever been in or are you currently in a harmful physical or emotional relationship or is someone making you feel afraid or unsafe? Denies 04/14/2024 Comments No Sex and Gender Information Value Date Recorded Sex Assigned at Not on file Legal Sex Female 3:46 AM HEAD SCREEN WORKER Gender Identity Not on file Sexual Orientation Not on file Obstetrics History Last Filed Vital Signs Vital Sign Reading Time Taken Comments Blood Pressure 143/84 08/06/2024 10:19 AM HEAD SCREEN WORKER Pulse 63 08/06/2024 10:19 AM HEAD SCREEN WORKER Temperature 36.2 C (97.1 F) 05/02/2023 10:10 AM CDT Respiratory Rate 18 04/14/2024 10:00 AM CDT Oxygen Saturation 98% 08/06/2024 10:19 AM HEAD SCREEN WORKER Inhaled Oxygen Concentration - - Weight 91.7 kg (202 lb 1.6 oz) 08/06/2024 10:19 AM HEAD SCREEN WORKER Height 157.5 cm (5' 2 ) 08/06/2024 10:19 AM HEAD SCREEN WORKER Body Mass Index 36.96 08/06/2024 10:19 AM HEAD SCREEN WORKER Plan of Treatment Health Maintenance Due Date Last Done Comments DTaP/Tdap/Td Vaccine (3 - Td or Tdap) 02/15/2019 02/15/2009, 02/15/2009 Breast Cancer Screening-Mammogram 10/27/2023 10/26/2022, 10/12/2021, 08/27/2016 Covid-19 Vaccine (2023-09 5 season) 2024 07/30/2023, 10/27/2022, 02/13/2022, Additional history exists Depression Screening 08/06/2025 08/06/2024, 05/08/2024, 01/28/2024, Additional history exists Fall Risk Assessment 08/06/2025 08/06/2024, 05/08/2024, 04/14/2024, Additional history exists Well Visit 65+ 08/06/2025 08/06/2024, 06/29, 06/09/2022, Additional history exists Osteoporosis Screening-Bone Density Scan 12/07/2026 12/07/2021 Colon Cancer Screening-Colonoscopy 04/14/2034 04/14/2024, 03/18/2014, 03/18/2014 Hepatitis C Screening Completed 11/23/2017 Zoster Vaccine Completed 10/02/2018, 12/2017, 06/24/2012 Pneumococcal vaccine 65+ Completed 022, 07/31/2018, 05/24/2017 Colon Cancer Screening-CT Colonography Discontinued 04/14/2024, 03/18/2014, 03/18/2014 Colon Cancer Screening-DNA Stool Discontinued 04/14/2024, 02/08/2024, 03/18/2014, Additional history exists Colon Cancer Screening-FIT Discontinued 04/14, 02/08/2024, 03/18/2014, Additional history exists Colon Cancer Screening-Sigmoidoscopy Discontinued 04/14/2024, 03/18/2014, 03/18/2014 Influenza Vaccine Completed 05/08/2024, , 06/09/2022, Additional history exists Hepatitis B Screening Completed 08/06/2024 Procedures Procedure Name Priority Date/Time Associated Diagnosis Comments COLONOSCOPY 04/14/2024 9:00 AM CDT SCREENING MAMMOGRAM 2D BILATERAL Schedule Routine, Read Routine (OP Routine) 10/26/2022 DEXA AXIAL SKELETON BONE DENSITY 1 OR MORE SITES Schedule Routine, Read Routine (OP Routine) 12/07/2021 HEPATITIS C ANTIBODY Routine 11/23/2017 10:06 AM CDT Encounter for hepatitis C screening test for low risk patient from Last 3 Months or Most Recently Relevant to Health Maintenance Results * Colonoscopy (04/14/2024 9:00 AM CDT) Anatomical Region Laterality Modality Other Narrative Procedure Note Salvador Chung MD - 04/14/2024 9:00 AM CDT [facility] Endoscopy Lab Patient Name: Lolis Ching Procedure Date: 04/14/2024 9:00 AM Date of : 1950 Admit Type: Outpatient Age: 73 Gender: Female Note Status: Finalized Attending MD: Salvador Chung M.D. Procedure Date: 04/14/2024 Procedure: Colonoscopy Indications: Positive Cologuard test Providers: Salvador Chung M.D., Christi Ray, SLOT FLOOR ATTENDANT (Anesthesia Staff), Amaya Allred, WILMER, Mary Tamayo, Director Of Corporate Sponsorships Referring MD: Aaron Lama M.D. Medicines: Monitored Anesthesia Care Complications: No immediate complications. Estimated blood loss:None. Estimated Blood Loss: Estimated blood loss: none. Procedure: Pre-Anesthesia Assessment: - Prior to the procedure, a History and Physicalwas performed, and patient medications and allergieswere reviewed. The patient's tolerance of previous anesthesia was also reviewed. The risks andbenefits of the procedure and the sedation options and risks were discussed with the patient. All questions were answered, and informed consent was obtained. Prior Anticoagulants: The patient has taken noanticoagulant or antiplatelet agents. ASA Grade Assessment: III -A patient with severe systemic disease. Afterreviewing the risks and benefits, the patient was deemed in satisfactory condition to undergo the procedure. - The risks and benefits of the procedure and the sedation options and risks were discussed with the patient. All questions were answered and informed consent was obtained. After I obtained informed consent, the scope was passed under direct vision. Throughout theprocedure, the patient's blood pressure, pulse, and oxygen saturations were monitored continuously. The scopewas passed under direct vision. The Colonoscope was introduced through the anus and advanced to the the cecum, identified by appendiceal orifice andileocecal valve. The colonoscopy was performed without difficulty. The patient tolerated the procedurewell. The quality of the bowel preparation was excellent. The quality of the bowel preparation was evaluated using the BBPS ([place] Bowel Preparation Scale)with scores of: Right Colon = 3, Transverse Colon = 3and Left Colon = 3 (entire mucosa seen well with no residual staining, small fragments of stool oropaque liquid). The total BBPS score equals 9. Theileocecal valve, appendiceal orifice, and rectum were photographed. The bowel preparation used wasGoLYTELY via split dose instruction. Findings: The perianal and digital rectal examinations were normal. Multiple small and large-mouthed diverticula were found in the entire colon. Retroflexion in the right colon was performed. External hemorrhoids were found during retroflexion. Impression: 1) Diverticulosis in the entire examined colon. 2) External hemorrhoids. 3) No specimens collected. Recommendation: - Discharge patient to home (ambulatory). - No repeat colonoscopy due to age. - Resume previous diet. - Continue present medications. Procedure Code(s): --- Professional --- 93158, Colonoscopy, flexible; diagnostic, including collection of specimen(s) by brushing or washing,when performed (separate procedure) Diagnosis Code(s): --- Professional --- K64.4, Residual hemorrhoidal skin tags R19.5, Other fecal abnormalities K57.30, Diverticulosis of large intestine without perforation or abscess without bleeding CPT copyright 2020 [employer]. All rights reserved. The codes documented in this report are preliminary and upon web marketing strategist reviewmay be revised to meet current compliance requirements. Salvador Chung M.D. 04/14/2024 9:27:11 AM Number of Addenda: 0 Note Initiated On: 04/14/2024 9:00 AM Salvador Chung MD ENDOSCOPY PROCEDURES Adelaida l Result * Screening Mammogram 2D Bilateral (10/26/2022) SCRIBED BI-RADS 1 Anatomical Region Laterality Modality Breast Bilateral Mammography Historical Provider IMG MAMMO PROCEDURES Edit ed Result - Final * Dexa Axial Skeleton Bone Density 1 or 2 Site (12/07/2021) Anatomical Region Laterality Modality Body N/A Radiographic Josephine ging Historical Provider IMG DXA PROCEDURES Final Result * Hepatitis C antibody (11/23/2017 10:06 AM CDT) Hep C Ab Nonreactive Nonreactive [facility] Comment: Interpretive Data Positive and greyzone results should be confirmed by a molecular method. If positive or greyzone, a second separately collected sample should be submitted for Hepatitis C Virus RNA. Detection and Quantitation by Real-Time Reverse Data Developer-PCR.Current Interpretive data was last revised on 2017. Blood specimen (specimen) 11/23/2017 10:06 AM CDT 11/23/2017 11:43 AM CDT Narrative [facility] - 11/23/2017 1:01 PM CDT Aliya De La Torre NP LAB MICROBIOLOGY - GENERAL [facility] [employer] Edited Result - Final [facility] Department [place] [address] from Last 3 Months or Most Recently Relevant to Health Maintenance Insurance UHC MEDICARE ADVANTAGE [facility] MEDICARE [facility] Address: [facility] [id number] [place] [id number] [employer] MEDICARE [facility] Address: [facility] [id number] [place] [address] Advance Directives For more information, please contact: [phone] Documents on File Type Date Recorded Patient Automatic Wheel Line Operator Expl anation Power of Senior Quality Methods Specialist 02/23/2023 5:23 PM Guanako Fangin [email or web address] Power of Senior Quality Methods Specialist 02/23/2023 5:23 PM Mireya eDurablePowerofAttorn [email or web address] Healthcare Agents on File Name Relationship Healthcare Agent Relationshi p Communication Guanako Ching Daughter First Alternate Health Care Agent Care Teams Abrasive Mixer Relationship Specialty [place] [address] [facility] [address] [place] [address] PCP - General Family Medicine 11/23/21 Clara Lugo MD [address] [place] [address] Consulting Physician Obstetrics and Gynecology 11/29/21 Lisa Clarke NP [address] [place] [address] Nurse Practitioner Pulmonary Disease 11/29/21 Ji Dominique MD [address] [place] [address] Consulting Physician Sports Medicine 11/07/22 Andrea Hill MD [address] [place] [address] Consulting Physician Neurosurgery 05/09/23 Hugh Mathis MD [address] [place] [address] Consulting Physician Orthopedic Surgery 07/17/23 Chirag Max MD [address] [facility] [address] [place] [address] Consulting Physician Nephrology 06/10/24
--- OUTSIDE RECORDS SUMMARY | 2024-11-28 10:41 | XMS_ITS | CONTINUITY OF CARE DOCUMENT ---
Author Name kamaljit mari Address Unknown Organization [facility] Address [id number] [place] [address] [address] [place] [address] Phone [phone] Care Team Providers Care Motor Bus Driver Name Role Phone Kapil Koenig MD Unavailable [phone] Kapil Koenig MD Unavailable [phone] INSURANCE PROVIDERS Payer name Policy type / Coverage type Ernie red republican ID [employer] MEDICARE MANA PPO Medicare [id number]
--- OUTSIDE RECORDS SUMMARY | 2024-11-28 10:41 | XMS_ITS | Encounter Summary ---
Author Organization [facility] Address [address] [place] [address] Care Team Providers Care Ur Coordinator Name Role Phone Aaron Lama MD Primary Care Provide r Clara Lugo MD Unavailable [phone] Lisa Clarke NP Unavailable [phone] Ji Dominique MD Unavailable Andrea Hill MD Unavailable [phone] Hugh Mathis MD Unavailable [phone] Chirag Max MD Unavailable [phone] Encounter Details Date Type Department Care Team (Late st Contact Info) Description 05/14/2024 Orders Only [facility] [address] [place] [address] Scanning, Provider Social History Tobacco Use Types [...] on file Legal Sex Female 3:46 AM BUS AND TROLLEY INSPECTING DISPATCHER Gender Identity Not on file Sexual Orientation Not on file documented as of this encounter Plan of Treatment Not on file documented as of this encounter Procedures Procedure Name Priority Date/Time Associated Diagnosis Comments SCAN - LABS 05/14/2024 documented in this encounter Results * SCAN - LABS (05/14/2024) us Provider Scanning Final Result documented in this encounter Visit Diagnoses Not on filedocumented in this encounter Care Teams Ur Coordinator Relationship Specialty [place] [id number] [address] PCP - General Family Medicine 11/23/21 Clara Lugo MD [address] [address] Consulting Physician Obstetrics and Gynecology 11/29/21 Lisa Clarke NP [address] [address] Nurse Practitioner Pulmonary Disease 11/29/21 Ji Dominique MD [address] [place] [address] Consulting Physician Sports Medicine 11/07/22 Andrea Hill MD [address] [place] [address] Consulting Physician Neurosurgery 05/09/23 Hugh Mathis MD [address] [place] [address] Consulting Physician Orthopedic Surgery 07/17/23 Chirag Max MD [address] [facility] [address] [place] [address] Consulting Physician Nephrology 06/10/24 documented as of this encounter
--- OUTSIDE RECORDS SUMMARY | 2024-11-28 10:41 | XMS_ITS | Encounter Summary ---
Author Organization [facility] Address [address] [place] [address] Care Team Providers Care Senior Solutions Engineer Name Role Phone Unavailable Primary Care Provider Unavailabl e Encounter Details Date Type Department Care Team (Late st Contact Info) Description 11/11/2021 Lab Requisition [facility] DermPath Lab [address] [place] [phone] Thanh Davis Jr., MD [address] [place] [address] Social History Tobacco Use Types Packs/Day Years Used Date Smoking Tobacco: Never Assessed Sex and Gender Information Value Date Recorded Sex Assigned at Not on file Gender Identity Not on file Sexual Orientation Not on file documented as of this encounter Plan of Treatment Not on file documented as of this encounter Procedures Procedure Name Priority Date/Time Associated Diagnosis Comments DERMATOPATHOLOGY Routine 11/10/2021 12:0 0 AM CDT documented in this encounter Results * DERMATOPATHOLOGY (11/10/2021 12:00 AM CDT) Case Report Dermatopathology Report Case: [id number] Authorizing Provider: Thanh Davis Jr., MD Collected: 11/10/2021 12:00 AM Ordering Location: [facility] DermPath Lab Received: 11/11/2021 11:22 AM Pathologist: Edelmira Reece MD Specimen: Skin, left anterior shoulder 2 10:50 AM CDT DERMATOPATHOLOGY LABORATORY Final Diagnosis Specimen A. SKIN, left anterior shoulder: BASAL CELL CARCINOMA (C44.619) NOT PRESENT AT MARGIN DERMAL SCAR (L90.5) ACTINIC KERATOSIS (L57.0) PRESENT AT MARGIN 2 10:50 AM CDT DERMATOPATHOLOGY LABORATORY Clinical History Basal cell carcinoma. Check margins. . 10:50 AM T DERMATOPATHOLOGY LABORATORY Gross Description Specimen A: Received is one formalin filled container labeled with the patient's name and designated left anterior shoulder.The specimen consists of an ellipse measuring [id number] and is oriented with the suture at the 12 o'clock position labeled on the requisition as superior. The 12 to 6 o'clock margin is inked green. The 6 o'clock to 12 o'clock margin is inked black. The 12 o'clock tip is submitted in cassette 1. The 6 o'clock tip is submitted in cassette 2. The remainder of the ellipse is serially sectioned and submitted in cassettes 3-4. Jar 0. 10:50 AM [facility] DERMATOPATHOLOGY LABORATORY Microscopic Description Specimen A. SKIN, left anterior shoulder: Within the dermis there are aggregates of basaloid cells with a high nuclear to cytoplasmic ratio and peripheral palisading. This lesion is not present at the margin of the specimen. There are fibroblasts and collagen bundles oriented parallel to the skin surface with elongated blood vessels, some of which are oriented perpendicular to the skin surface. There is focal parakeratosis. The lower half of the epidermis shows disorderly maturation of keratinocytes with nuclear pleomorphism. This lesion is present at the margin of the specimen. 10:50 AM [facility] DERMATOPATHOLOGY LABORATORY Disclaimer An external and internal positive and negative controls are appropriate for the histochemical, immunohistochemical and immunofluorescence stain(s) in this case (if any), except where stated explicitly. The performance characteristics of the stain(s) cited in this report were developed and its performance characteristic determined by the Dermatopathology Laboratory at [facility], directed by Dr. Dinorah Arceo. These tests need not be, and therefore are not, approved by the [place] Food and Drug Administration. The tests are used for clinical purposes. Billing Codes Specimen Charges Stain Charges 76252 1 10:50 AM T DERMATOPATHOLOGY LABORATORY Embedded Images 10:50 AM [facility] DERMATOPATHOLOGY LABORATORY Pathology/Cytolog y TISSUE SPECIMEN FROM SKIN / Unknown 11/10/2021 11/11/2021 11:22 AM CDT Thanh Davis Jr., MD LAB - PATHOLOGY /CYTOLOGY ORDERABLES DERMATOPATHOLOGY LABORATORY [facility] - Department of Dermatology [facility] [place] [facility] Medicine [address] [place] [address], [address] [phone] documented in this encounter Visit Diagnoses Not on filedocumented in this encounter
--- OUTSIDE RECORDS SUMMARY | 2024-11-28 10:41 | XMS_ITS | Clinical Summary ---
Author Organization [facility] Address [address] [place] [address] Care Team Providers Care Electronic Equipment Trades Worker Name Role Phone Unavailable Primary Care Provider Unavailabl e Source Comments [facility],non-owned Affiliates and Associated Physician Practices is amultiple site organization consisting of ambulatory clinics and hospital sitesin [place], [place], [place] and [place]. This disclosure is being madepursuant to the Care Everywhere program and may not contain all information available regarding this patient. Last updated 18.[facility] Social History Tobacco Use Types Packs/Day Years Used Date Smoking Tobacco: Never Assessed Sex and Gender Information Value Date Recorded Sex Assigned at Not on file Gender Identity Not on file Sexual Orientation Not on file Plan of Treatment Health Maintenance Due Date Last Done Comments BONE DENSITY TESTING 1950 COLOGUARD (AGES 45-75) - COL ON CA SCREENING 1950 COLON MONITORING 1950 COLONOSCOPY - COLON CA SCREENING 1950 CT COLONOGRAPHY - COLON CA SCREENING 1950 Colorectal Cancer Screening 1950 FIT - COLON CA SCREENING 1950 FLEX SIG - COLON CA SCREENING 1950 LIPID TESTING 1950 MAMMOGRAM 1950 HEPATITIS C SCREENING 08/16/1969 DTAP/TDAP/TD VACCINES (1 - Tdap) 1970 PNEUMOCOCCAL VACCINE 50+ (1 of 1 - PCV) 2001 ZOSTER VACCINE (1 of 2) 2001 COVID-19 VACCINE ( - 2023-2 5 season) 2024 INFLUENZA VACCINE (#1) 2024 DEPRESSION SCREENING 08/27/2024 MEDICARE AWV CALENDAR YEAR 2024 Respiratory Syncytial Virus (RSV) Vaccine Pt: or over 60 yrs (1 - 1-dose 75+ series) 2026 HEPATITIS B VACCINE Aged Out No longe r eligible based on patient's age to complete this topic HIB VACCINE Aged Out No longer eligi ble based on patient's age to complete this topic HPV VACCINE Aged Out No longer eligi ble based on patient's age to complete this topic MENINGOCOCCAL (Group B) VACC INE SHARED DECISION-MAKING Aged Out No longer eligibl e based on patient's age to complete this topic MENINGOCOCCAL GROUPS A/C/Y/W VACCINE Aged Out No longer eligible b ased on patient's age to complete this topic
--- OUTSIDE RECORDS SUMMARY | 2024-11-28 10:41 | XMS_ITS | Encounter Summary ---
Author Organization [facility] Address [address] [place] [address] Care Team Providers Care Town Administrator Name Role Phone Unavailable Primary Care Provider Unavailabl e Encounter Details Date Type Department Care Team (Late st Contact Info) Description 10/19/2021 Lab Requisition [facility] DermPath Lab [address] [place] [phone] Thanh Davis Jr., MD [address] [place] [address] Social History Tobacco Use Types Packs/Day Years Used Date Smoking Tobacco: Never Assessed Sex and Gender Information Value Date Recorded Sex Assigned at Not on file Gender Identity Not on file Sexual Orientation Not on file documented as of this encounter Plan of Treatment Not on file documented as of this encounter Procedures Procedure Name Priority Date/Time Associated Diagnosis Comments DERMATOPATHOLOGY Routine 10/18/2021 12:0 0 AM CARPET CLEANING TECHNICIAN documented in this encounter Results * DERMATOPATHOLOGY (10/18/2021 12:00 AM CARPET CLEANING TECHNICIAN) Case Report Dermatopathology Report Case: [id number] Authorizing Provider: Thanh Davis Jr., MD Collected: 10/18/2021 12:00 AM Ordering Location: [facility] DermPath Lab Received: 10/19/2021 02:14 PM Pathologist: Alana Arceo MD Specimens: A) - Skin, nasal supratip B) - Skin, left anterior shoulder 2 4:01 PM CARPET CLEANING TECHNICIAN DERMATOPATHOLOGY LABORATORY Final Diagnosis Specimen A. SKIN, nasal supratip: PROMINENT BASILAR PIGMENTATION CONSISTENT WITH SOLAR LENTIGO (L81.4) (see microscopic description) Specimen B. SKIN, left anterior shoulder: BASAL CELL CARCINOMA, KERATOTIC TYPE (C44.619) 2 4:01 PM CARPET CLEANING TECHNICIAN DERMATOPATHOLOGY LABORATORY Clinical History A: Melanoma vs lentigo. B: Basal cell carcinoma. . 2 4:01 PM [facility] DERMATOPATHOLOGY LABORATORY Gross Description Specimen A: Received is one formalin filled container labeled with the patient's name and designated nasal supratip. The specimen consists of a shave biopsy measuring [id number]. Jar 0. Specimen B: Received is one formalin filled container labeled with the patient's name and designated left anterior shoulder. The specimen consists of a shave biopsy measuring 19c9h4mg. Jar 0. 2 4:01 PM [facility] DERMATOPATHOLOGY LABORATORY Microscopic Description Specimen A. SKIN, nasal supratip: Sections show prominent pigmentation of the basal layer without a prominent increase in melanocytes. Some of the basilar keratinocytes are slightly enlarged but uniform. The rete ridges are not elongated. Additional deeper sections were obtained and reviewed. Specimen B. SKIN, left anterior shoulder: The dermis is infiltrated by nests of basaloid cells that show peripheral palisading and are associated with fibromyxoid stroma. Both mitotic figures and necrotic cells are identified. There are also areas with squamous differentiation and keratinization within the nests. 2 4:01 PM [facility] DERMATOPATHOLOGY LABORATORY Disclaimer An external and internal positive and negative controls are appropriate for the histochemical, immunohistochemical and immunofluorescence stain(s) in this case (if any), except where stated explicitly. The performance characteristics of the stain(s) cited in this report were developed and its performance characteristic determined by the Dermatopathology Laboratory at [facility], directed by Dr. Dinorah Arceo. These tests need not be, and therefore are not, approved by the [place] Food and Drug Administration. The tests are used for clinical purposes. Billing Codes Specimen Charges Stain Charges 32105 28133 1 1 2 4:01 PM [facility] DERMATOPATHOLOGY LABORATORY Embedded Images 2 4:01 PM [facility] DERMATOPATHOLOGY LABORATORY Pathology/Cytology TISSUE SPECIMEN FROM SKIN / Unknown 10/18/2021 10/19/2021 2:14 PM CARPET CLEANING TECHNICIAN Miscellaneous samples (specimen) TISSUE SPECIMEN FROM SKIN / Unknown 10/18/2021 10/19/2021 2:14 PM CARPET CLEANING TECHNICIAN Thanh Davis Jr., MD LAB - PATHOLOGY /CYTOLOGY ORDERABLES DERMATOPATHOLOGY LABORATORY [facility] - Department of Dermatology [facility] [address] [place] [address], [address] [phone] documented in this encounter Visit Diagnoses Not on filedocumented in this encounter
--- OUTSIDE RECORDS SUMMARY | 2024-11-28 10:41 | XMS_ITS | Referral Summary ---
Author Organization [facility] Address [address] [place] [address] Care Team Providers Care It Operations Analyst Name Role Phone Aaron Lama MD Primary Care Provide r Clara Lugo MD Unavailable [phone] Lisa Clarke NP Unavailable [phone] Ji Dominique MD Unavailable Andrea Hill MD Unavailable [phone] Hugh Mathis MD Unavailable [phone] Chirag Max MD Unavailable [phone] Encounters Date Type Department Care Team Description 10/22/2024 Telephone [facility] at [address] [address] Aaron Lama MD Symptom Based Call 09/19/2024 Telephone [facility] at [address] [address] Aaron Lama MD Prior Auth 09/17/2024 Telephone [facility] at [address] [address] Aaron Lama MD 09/15/2024 Telephone [facility] Gastroenterology at [address] [place] [address] Salvador Chung MD from Last 3 Months Allergies Active Allergy Reactions Criticality Noted Date [...] 08/06/2024 Assessment & Plan (08/06/2024 11:49 AM CLIENT LEADER): Clinically stable with no evidence thyroid dysfunction Monitor clinically and consider repeat imaging if clinically indicated Chronic bilateral low back pain with left-sided sciatica 08/06/2024 Assessment & Plan (08/06/2024 11:52 AM CLIENT LEADER): Controlled/stable, continue current management Continue Zanaflex p.r.n. 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, or unspecified(403.10) 08/06/2024 Assessment & Plan (08/06/2024 11:53 AM CLIENT LEADER): BP Readings from Last 3 Encounters: 08/06/24 143/84 05/08/24 131/77 04/14/24 (!) 188/63 Controlled/stable, continue current management Continue lisinopril-hydrochlorothiazide Stage 3a chronic kidney disease 08/06/2024 Assessment & Plan (08/06/2024 11:51 AM CLIENT LEADER): Stable, monitor Follow up with Nephrology Class 2 severe obesity due t o excess calories with serious comorbidity and body mass index (BMI) of 36.0 to 36.9 in adult 08/06/2024 Assessment & Plan (08/06/2024 11:50 AM CLIENT LEADER): The patient is a candidate for GLP [...] 03/14/2023 Assessment & Plan (08/06/2024 11:52 AM CLIENT LEADER): Controlled/stable, continue current management Continue Zanaflex p.r.n. Consider consultation to physical therapy or Pain Management if worsening Primary osteoarthritis of left hip 01/29/2023 Spinal stenosis of lumbar re gion without neurogenic claudication 11/07/2022 Assessment & Plan (08/06/2024 11:52 AM CLIENT LEADER): Controlled/stable, continue current management Continue Zanaflex p.r.n. Consider consultation to physical therapy or Pain Management if worsening Renal cysts, acquired, bilateral 11/07/2022 Overview (11/07/2022): Incidental finding on Lumbar MRI 11/01/22 Assessment & Plan (08/06/2024 11:51 AM CLIENT LEADER): Incidental finding on lumbar MRI 11/01/2022 Likely benign Will continue to monitor periodically with imaging if clinically indicated Lumbar degenerative disc disease 11/07/2022 Primary osteoarthritis of right hip 11/07/2022 Prediabetes 06/09/2022 Assessment & Plan (08/06/2024 11:49 AM CLIENT LEADER): Lab Results Component Value Date HGBA1C 6.3 [...] disease) Assessment & Plan (08/06/2024 11:51 AM CLIENT LEADER): Controlled/stable, continue current management Patient tried weaning [...] 11/23/2017 Assessment & Plan (08/06/2024 11:53 AM CLIENT LEADER): Patient continues to receive benefit from CPAP Follow-up with Pulmonology Hyperlipidemia 01/10/2014 Overview (12/01/2016): Hyperlipidemia LDL goal < 130 Assessment & Plan (08/06/2024 11:49 AM CLIENT LEADER): Continue statin therapy Resolved Problems Problem Noted Date Diagnosed Date Resolved Date Positive colorectal cancer s creening using Cologuard test 02/26/2024 08/06/2024 Cervical myelopathy 05/09/2023 08/06/20 24 Elevated hemoglobin A1c 06/03/201807/27 Abnormal findings on radiolo gical examination of gastrointestinal tract 03/03/2014 08/06/2024 Left lower quadrant pain 03/03/201406/2024 Hypertension 01/10/2014 08/06/2024 Overview (11/30/2016): Hypertension Immunizations Immunization Administration Dates Next Due COVID-19 mRNA ([employer]) 0.3 m L (30 mcg) vaccine (12 [...] 02/15/2009,02/15/2009 ZOSTER LIVE 06/24/2012 ZOSTER Recombinant 10/02/2018,07/31/2018 Social History Tobacco Use Types Packs/Day Years [...] on file Legal Sex Female 3:46 AM CLIENT LEADER Gender Identity Not on file Sexual Orientation Not on file Last Filed Vital Signs Vital Sign Reading Time Taken Comments Blood Pressure 143/84 08/06/2024 10:19 AM CLIENT LEADER Pulse 63 08/06/2024 10:19 AM CLIENT LEADER Temperature 36.2 C (97.1 F) 05/02/2023 10:10 AM CDT Respiratory Rate 18 04/14/2024 10:00 AM CDT Oxygen Saturation 98% 08/06/2024 10:19 AM CLIENT LEADER Inhaled Oxygen Concentration - - Weight 91.7 kg (202 lb 1.6 oz) 08/06/2024 10:19 AM CLIENT LEADER Height 157.5 cm (5' 2 ) 08/06/2024 10:19 AM CLIENT LEADER Body Mass Index 36.96 08/06/2024 10:19 AM CLIENT LEADER Plan of Treatment Not on file Procedures Procedure Name Priority Date/Time Associated Diagnosis [...] Chung MD - 04/14/2024 9:00 AM CDT [facility] Endoscopy Lab Patient Name: Lolis Ching Procedure Date: 04/14/2024 9:00 AM Date of : 1950 Admit Type: Outpatient Age: 73 Gender: Female Note Status: Finalized Attending MD: Salvador Chung M.D. Procedure Date: 04/14/2024 Procedure: Colonoscopy Indications: Positive Cologuard test Providers: Salvador Chung M.D., Christi Ray, MUSIC MANAGER (Anesthesia Staff), Amaya Allred, RN, Mary Tamayo, Laborer Demolition Referring MD: Aaron Lama M.D. Medicines: Monitored [...] bowel preparation was evaluated using the BBPS ([place] Bowel Preparation Scale)with scores of: Right Colon [...] present medications. Procedure Code(s): --- Professional --- 72525, Colonoscopy, flexible; diagnostic, including collection of specimen(s) by brushing or washing,when performed (separate procedure) Diagnosis Code(s): --- Professional --- K64.4, Residual hemorrhoidal skin tags R19.5, Other fecal abnormalities K57.30, Diverticulosis of large intestine without perforation or abscess without bleeding CPT copyright 2020 [employer] [employer]. All rights reserved. The codes documented in this report are preliminary and upon monument letterer reviewmay be revised to meet current compliance requirements. Salvador Chung M.D. 04/14/2024 9:27:11 AM Number of Addenda: 0 Note Initiated On: 04/14/2024 9:00 AM Salvador Chung MD ENDOSCOPY PROCEDURES Adelaida l Result * Screening Mammogram 2D Bilateral (10/26/2022) SCRIBED BI-RADS 1 Anatomical Region Laterality Modality Breast Bilateral Mammography Historical Provider MD RODAS MAMMO PROCEDURES Edit ed Result - Final * Dexa Axial Skeleton Bone Density 1 or 2 Site (12/07/2021) Anatomical Region Laterality Modality Body N/A Radiographic Josephine ging Historical Provider MD RODAS DXA PROCEDURES Final Result * Hepatitis C antibody (11/23/2017 10:06 AM CDT) Hep C Ab Nonreactive Nonreactive [facility] Comment: Interpretive Data Positive and greyzone results should be confirmed by a molecular method. If positive or greyzone, a second separately collected sample should be submitted for Hepatitis C Virus RNA. Detection and Quantitation by Real-Time Reverse Residential Solar Consultant-PCR.Current Interpretive data was last revised on 2017. Blood specimen (specimen) 11/23/2017 10:06 AM CDT 11/23/2017 11:43 AM CDT Narrative [facility] - 11/23/2017 1:01 PM CDT Aliya De La Torre NP LAB MICROBIOLOGY - GENERAL [employer] Edited Result - Final [facility] [place] [address] from Last 3 Months or Most Recently Relevant to Health Maintenance Insurance [facility] MEDICARE ADVANTAGE [facility] Address: [facility] [address] [place] [address] [employer] MEDICARE [facility] MEDICARE Advance Directives For more information, please contact: [phone] Documents on File Type Date Recorded Patient Hunter Skin Diver Expl anation Power of Lei Maker 02/23/2023 5:23 PM Guanako Ching Mireya [email or web address] Power of Lei Maker 02/23/2023 5:23 PM Mireya [email or web address] Healthcare Agents on File Name Relationship Healthcare Agent Relationshi p Communication Guanako Ching Daughter First Alternate Health Care Agent Care Teams It Operations Analyst Relationship Specialty [place] [address] [facility] [address] [place] [address] PCP - General Family Medicine 11/23/21 Clara Lugo MD [address] [facility] [address] [place] [address] Consulting Physician Obstetrics and Gynecology 11/29/21 Lisa Clarke LINEN ATTENDANT [address] [facility] [address] [place] [address] Nurse Practitioner Pulmonary Disease 11/29/21 Ji Dominique MD [facility] [place] [address] Consulting Physician Sports Medicine 11/07/22 Andrea Hill MD [facility] [place] [address] Consulting Physician Neurosurgery 05/09/23 Hugh Mathis MD [address] [place] [address] Consulting Physician Orthopedic Surgery 07/17/23 Chirag Max MD [address] [facility] [address] [place] [address] Consulting Physician Nephrology 06/10/24
[2024-11-28 11:24] LABS: Creatinine Urine 61.9 mg/dL
[2024-11-28 12:07] LABS: Total Protein Urine Random < 5 mg/dL; Ur Ttl Prot Creatinine Ratio < 0.08 mg/mg (0-0.20)
[2024-11-28 13:43] LABS: Albumin Level 4.5 g/dL (3.5-5.1); Anion Gap 14 mmol/L (4-12); Blood Urea Nitrogen 25 mg/dL (7-17); Calcium 9.4 mg/dL (8.4-10.2); Carbon Dioxide 25 mmol/L (22-30); Chloride 103 mmol/L (98-107); Estimated Glomerular Filt Rate 51; Glucose 135 mg/dL (65-110); Phosphorus 3.9 mg/dL (2.5-4.5); Potassium 4.3 mmol/L (3.4-5.0); Sodium 142 mmol/L (137-145)
== END 2024-11-28 10:17 | disposition home or self-care (01) ==
PROVIDERS: Visit Provider Internal Medicine Nephrology
DX: I12.9 Hypertensive chronic kidney disease with stage 1 through stage 4 chronic kidney disease, or unspecified chronic kidney disease (principal); N18.31 Chronic kidney disease, stage 3a
CPT/HCPCS: 36415; 80069; 82570; 84156

== ENCOUNTER 2024-12-04 09:59 | Outpatient (CLI) | payer MEDICARE, SELFPAY ==
--- NOTE | 2024-12-04 10:11 | ECHO_ITS ---
Patient Info Name: Lolis Ching Age: 74 years : 1950 Gender: Female Ht: 63 in Wt: 205 lbs BSA: 2.08 m2 HR: 57 bpm BP: 173 / 80 mmHg Heart Rhythm: Sinus Rhythm Technical Quality: Fair Exam Date: 12/04/2024 10:18 AM Exam Location: Echo Lab Patient Status: Outpatient Admit Date: 12/04/2024 Staff Ordering Physician: Milad Edge APRN International Manager: Sonia Park RDCS Attending Provider: Milad Edge APRN Referring Physician: Minesh MARS; Exam Type: CA echo doppler color flow Study Info Indications - Cardiac murmur Complete two-dimensional, color flow and Doppler transthoracic echocardiogram is performed. Summary 1. Complete two-dimensional, color flow and Doppler transthoracic echocardiogram is performed. 2. Technically suboptimal study due to poor sonographic images. 3. Left ventricular chamber dimension is normal. 4. Left ventricular systolic function is normal, estimated at 60-65%. 5. There is mild concentric increased left ventricular wall thickness. 6. The left ventricular diastolic function is grade I diastolic dysfunction. 7. E/e' 9 is minimally elevated. 8. There is mild aortic valve sclerosis. 9. There is mild to moderate mitral valve regurgitation. 10. There is trace tricuspid valve regurgitation. 11. No pulmonary hypertension, estimated pulmonary arterial systolic pressure is 34 mmHg. Left Ventricle E/e' 9 is minimally elevated. Technically suboptimal study due to poor sonographic images. Left ventricular chamber dimension is normal. Left ventricular systolic function is normal, estimated at 60-65%. There is mild concentric increased left ventricular wall thickness. The left ventricular diastolic function is grade I diastolic dysfunction. Right Ventricle Right ventricular systolic function is normal and with normal TAPSE 2.0 cm. Right ventricular chamber dimension is normal. Left Atria Left atrial chamber dimension is normal. Right Atria Right atrial chamber dimension is normal. Aortic Valve The aortic valve is trileaflet. There is mild aortic valve sclerosis. There is no aortic valve stenosis. There is no aortic valve regurgitation. Pulmonic Valve There is no pulmonic regurgitation. Mitral Valve There is no mitral valve stenosis. There is mild to moderate mitral valve regurgitation. Tricuspid Valve There is trace tricuspid valve regurgitation. No pulmonary hypertension, estimated pulmonary arterial systolic pressure is 34 mmHg. Pericardium/Pleural There is no pericardial effusion. Inferior Vena Cava Normal inferior vena cava with >50% collapse upon inspiration consistent with normal right atrial pressure, 5 mmHg. Aorta The aortic root size at the sinus of Valsalva is normal. Left Ventricular Outflow Tract Name Value Normal LVOT 2D LVOT Diameter 2.0 cm LVOT Doppler LVOT Peak Gradient 7 mmHg LVOT Mean Gradient 3 mmHg LVOT VTI 30 cm LVOT VTI/AV VTI Ratio 0.7 LVOT Stroke Volume 93 ml LVOT CO 16.5 l/min LVOT CI 8.0 l/min/m2 Pulmonic Valve Name Value Normal RVOT Doppler RVOT Peak Gradient 2 mmHg PV Doppler PV Peak Gradient 5 mmHg Mitral Valve Name Value Normal MV Doppler MV Decel Lucas 417 cm/s2 MV PHT 62 ms MV Area (PHT) 3.6 cm2 4.0-5.0 MV Regurgitation Doppler MR Peak Gradient 156 mmHg MV Diastolic Function MV E Peak Velocity 89 cm/s MV A Peak Velocity 100 cm/s MV E/A 0.9 MV Decel Time 212 ms MV Annular TDI MV E/e' (Septal) 10.3 <=8.0 MV E/e' (Lateral) 8.9 <=8.0 MV E/e' (Average) 9.6 Tricuspid Valve Name Value Normal TV Regurgitation Doppler TR Peak Velocity 267 cm/s TR Peak Gradient 29 mmHg Estimated PAP/RSVP RA Pressure 5 mmHg <=5 PA Systolic Pressure 34 mmHg <36 RV Systolic Pressure 34 mmHg <36 Aortic Valve Name Value Normal AV Doppler AV Peak Velocity 180 cm/s AV Peak Gradient 13 mmHg AV Mean Gradient 7 mmHg AV VTI 45 cm AV Area (Cont Eq VTI) 2.1 cm2 >=3.0 AV Area (Cont Eq Kvng) 2.3 cm2 AV Regurgitation 2D LVOT Area 3.2 cm2 Ventricles Name Value Normal LV Dimensions 2D/MM IVS Diastolic Thickness (2D) 1.1 cm 0.6-1.0 LVID Diastole (2D) 4.2 cm 3.8-5.2 LVIW Diastolic Thickness (2D) 1.2 cm 0.6-0.9 LVID Systole (2D) 2.8 cm 2.2-3.5 LVOT Diameter 2.0 cm LV Mass (2D Cubed) 166.89 g 67.00-162.00 LV Mass Index (2D Cubed) 80 g/m2 43-95 Relative Wall Thickness (2D) 0.57 LV Fractional Shortening/Ejection Fraction 2D/MM LV Fractional Shortening (2D) 34 % 27-45 LV EF (2D Teicholz) 64 % 54-74 LV Diastolic Volume (4C MOD) 122 ml LV EF (4C MOD) 64 % LV Diastolic Volume (2C MOD) 106 ml LV EF (2C MOD) 71 % LV Diastolic Volume (BP MOD) 116 ml 46-106 LV Diastolic Volume Index (BP MOD) 56 ml/m2 29-61 LV Systolic Volume (BP MOD) 38 ml 14-42 LV Systolic Volume Index (BP MOD) 18 ml/m2 8-24 LV EF (BP MOD) 67 % 54-74 LV Diastolic Length (4C) 8.4 cm LV Systolic Length (4C) 6.7 cm LV Stroke Volume (4C MOD) 79 ml Atria Name Value Normal LA Dimensions LA Volume (4C A-L) 40 ml LA Volume (BP A-L) 51 ml RA Dimensions RA Area (4C) 18.9 cm2 <=18.0 Report Signatures
--- OUTSIDE RECORDS SUMMARY | 2024-12-04 10:37 | XMS_ITS | CONTINUITY OF CARE DOCUMENT ---
Author Name kamaljit mari Address Unknown Organization [facility] Address [address] [place] [address] [address] [place] [address] Phone [phone] Care Team Providers Care Coremaker Machine Name Role Phone Kapil Koenig MD Unavailable Kapil Koenig MD Unavailable INSURANCE PROVIDERS Payer name Policy type / Coverage type Ernie red libertarian ID [employer] MEDICARE MANA PPO Medicare [id number]
--- OUTSIDE RECORDS SUMMARY | 2024-12-04 10:37 | XMS_ITS | Encounter Summary ---
Author Organization [facility] Address [address] [place] [address] Care Team Providers Care Buyer Internship Name Role Phone Unavailable Primary Care Provider Unavailabl e Encounter Details Date Type Department Care Team (Late st Contact Info) Description 11/11/2021 Lab Requisition [facility] D[facility] Lab [address] [facility], [place] [id number] Thanh Davis Jr., MD [address] [facility] [address] [place] [address] Social History Tobacco Use Types Packs/Day Years [...] AM CDT) Case Report Dermatopathology Report Case: [id number] Authorizing Provider: Thanh Davis Jr., MD Collected: 11/10/2021 12:00 AM Ordering Location: [facility] Received: 11/11/2021 11:22 AM [...] shoulder.The specimen consists of an ellipse measuring [id number] and is oriented with the suture at [...] in cassettes 3-4. Jar 0. 10:50 AM [facility] DERMATOPATHOLOGY LABORATORY Microscopic Description [...] the margin of the specimen. 10:50 AM [facility] DERMATOPATHOLOGY LABORATORY Disclaimer An external and internal positive and negative controls are appropriate for the histochemical, immunohistochemical and immunofluorescence stain(s) in this case (if any), except where stated explicitly. The performance characteristics of the stain(s) cited in this report were developed and its performance characteristic determined by the Dermatopathology Laboratory at [facility], directed by Dr. Dinorah Arceo. These tests need not be, and therefore are not, approved by the [place] Food and Drug Administration. The tests are used for clinical purposes. Billing Codes Specimen Charges Stain Charges 18218 1 10:50 AM T DERMATOPATHOLOGY LABORATORY Embedded Images 10:50 AM [facility] DERMATOPATHOLOGY LABORATORY Pathology/Cytolog y TISSUE SPECIMEN FROM SKIN / Unknown 11/10/2021 11/11/2021 11:22 AM CDT Thanh Davis Jr., MD LAB - PATHOLOGY /CYTOLOGY ORDERABLES DERMATOPATHOLOGY LABORATORY [facility] - Department of Dermatology [facility] Medicine [address] [place] [address], [address] [phone] documented in this encounter Visit Diagnoses Not on filedocumented in this encounter
--- OUTSIDE RECORDS SUMMARY | 2024-12-04 10:37 | XMS_ITS | Clinical Summary ---
Author Organization [facility] Address [address] [place] [address] Care Team Providers Care Internal Medicine Physician Assistant Name Role Phone Unavailable Primary Care Provider [...]
--- OUTSIDE RECORDS SUMMARY | 2024-12-04 10:37 | XMS_ITS | Encounter Summary ---
Author Organization [facility] Address [address] [place] [address] Care Team Providers Care Credit Analyst Name Role Phone Unavailable Primary Care Provider Unavailabl e Encounter Details Date Type Department Care Team (Late st Contact Info) Description 10/19/2021 Lab Requisition [facility] Derm[facility] Lab [address] [facility], [place] [id number] Thanh Davis Jr., MD [address] [facility] [address] [place] [address] Social History Tobacco Use Types Packs/Day Years [...] Comments DERMATOPATHOLOGY Routine 10/18/2021 12:0 0 AM CONCRETE TILE MACHINE OPERATOR documented in this encounter Results * DERMATOPATHOLOGY (10/18/2021 12:00 AM CONCRETE TILE MACHINE OPERATOR) Case Report Dermatopathology Report Case: [id number] Authorizing Provider: Thanh Davis Jr., MD Collected: 10/18/2021 12:00 AM Ordering Location: [facility] Derm[facility] Lab Received: 10/19/2021 02:14 PM Pathologist: Alana Arceo MD Specimens: A) - Skin, nasal supratip B) - Skin, left anterior shoulder 2 4:01 PM CONCRETE TILE MACHINE OPERATOR DERMATOPATHOLOGY LABORATORY Final Diagnosis Specimen A. SKIN, nasal supratip: PROMINENT BASILAR PIGMENTATION CONSISTENT WITH SOLAR LENTIGO (L81.4) (see microscopic description) Specimen B. SKIN, left anterior shoulder: BASAL CELL CARCINOMA, KERATOTIC TYPE (C44.619) 2 4:01 PM CONCRETE TILE MACHINE OPERATOR DERMATOPATHOLOGY LABORATORY Clinical History A: Melanoma vs lentigo. B: Basal cell carcinoma. . 2 4:01 PM [facility] DERMATOPATHOLOGY LABORATORY Gross Description Specimen A: Received is one formalin filled container labeled with the patient's name and designated nasal supratip. The specimen consists of a shave biopsy measuring [id number]. Jar 0. Specimen B: Received is one formalin filled container labeled with the patient's name and designated left anterior shoulder. The specimen consists of a shave biopsy measuring [id number]. Jar 0. 2 4:01 PM [facility] DERMATOPATHOLOGY LABORATORY Microscopic Description Specimen A. SKIN, [...] keratinization within the nests. 2 4:01 PM [facility] DERMATOPATHOLOGY LABORATORY Disclaimer An external and internal positive and negative controls are appropriate for the histochemical, immunohistochemical and immunofluorescence stain(s) in this case (if any), except where stated explicitly. The performance characteristics of the stain(s) cited in this report were developed and its performance characteristic determined by the Dermatopathology Laboratory at [facility], directed by Dr. Dinorah Arceo. These tests need not be, and therefore are not, approved by the [place] Food and Drug Administration. The tests are used for clinical purposes. Billing Codes Specimen Charges Stain Charges 59328 30145 1 1 2 4:01 PM [facility] DERMATOPATHOLOGY LABORATORY Embedded Images 2 4:01 PM [facility] DERMATOPATHOLOGY LABORATORY Pathology/Cytology TISSUE SPECIMEN FROM SKIN / Unknown 10/18/2021 10/19/2021 2:14 PM CONCRETE TILE MACHINE OPERATOR Miscellaneous samples (specimen) TISSUE SPECIMEN FROM SKIN / Unknown 10/18/2021 10/19/2021 2:14 PM CONCRETE TILE MACHINE OPERATOR Thanh Davis Jr., MD LAB - PATHOLOGY /CYTOLOGY ORDERABLES DERMATOPATHOLOGY LABORATORY [facility] - Department of Dermatology [facility] Medicine [address] [place] [address], [address] [phone] documented in this encounter Visit Diagnoses Not on filedocumented in this encounter
--- OUTSIDE RECORDS SUMMARY | 2024-12-04 10:38 | XMS_ITS | Encounter Summary ---
Author Organization [facility] Address [address] [place] [address] Care Team Providers Care Journeyman Welder Name Role Phone Aaron Lama MD Primary Care Provide r Clara Lugo MD Unavailable [phone] Lisa Clarke NP Unavailable [phone] Ji Dominique MD Unavailable Andrea Hill MD Unavailable [phone] Hugh Mathis MD Unavailable [phone] Chirag Max MD Unavailable [phone] Encounter Details Date Type Department Care Team (Late st Contact Info) Description 05/22/2024 Orders Only [facility] Health Information Management [address] [place] [address] Scanning, Provider Social History Tobacco Use Types [...] on file Legal Sex 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 Gender Identity Not on file Sexual Orientation [...] on filedocumented in this encounter Care Teams Journeyman Welder Relationship Specialty [place] [id number] [address] PCP - General Family Medicine 11/23/21 Clara Lugo MD [address] [address] Consulting Physician Obstetrics and Gynecology 11/29/21 Lisa Clarke NP [address] [address] Nurse Practitioner Pulmonary Disease 11/29/21 Ji Dominique MD [address] [place] [address] Consulting Physician Sports Medicine 11/07/22 Andrea Hill MD [address] [place] [address] Consulting Physician Neurosurgery 05/09/23 Hugh Mathis MD [address] [place] [address] Consulting Physician Orthopedic Surgery 07/17/23 Chirag Max MD [address] [facility] [address] [place] [address] Consulting Physician Nephrology 06/10/24 documented as of this encounter
--- OUTSIDE RECORDS SUMMARY | 2024-12-04 10:38 | XMS_ITS | Clinical Summary ---
Author Organization [facility] Address [address] [place] [address] Care Team Providers Care Payroll Officer Name Role Phone Unavailable Primary Care Provider Unavailabl e Source Comments [facility],non-owned Affiliates and Associated Physician Practices is amultiple site organization consisting of ambulatory clinics and hospital sitesin [place] and [place]. This disclosure is being madepursuant to the Care Everywhere program and may not contain all information available regarding this patient. Last updated 18.[facility] Social History Tobacco Use Types Packs/Day Years [...] VACCINE ( - 2023-2 5 season) 2024 DEPRESSION SCREENING 08/27/2024 MEDICARE AWV CALENDAR YEAR 2024 INFLUENZA VACCINE (Season Ended) 2025 Respiratory Syncytial Virus (RSV) Vaccine Pt: or [...]
--- OUTSIDE RECORDS SUMMARY | 2024-12-04 10:38 | XMS_ITS | Encounter Summary ---
Author Organization [facility] Address [address] [place] [address] Care Team Providers Care Cardiac Rn Name Role Phone Aaron Lama MD Primary Care Provide r Clara Lugo MD Unavailable [phone] Lsia Clarke NP Unavailable [phone] Ji Dominique MD Unavailable [phone] Andrea Hill MD Unavailable Hugh Mathis MD Unavailable [phone] Chirag Max MD Unavailable [phone] Encounter Details Date Type Department Care Team (Late st Contact Info) Description 05/14/[address] 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 Gender Identity Not on file Sexual Orientation [...] on filedocumented in this encounter Care Teams Cardiac Rn Relationship Specialty [place] [address] [address] PCP - General Family Medicine 11/23/21 Clara Lugo MD [address] [address] Consulting Physician Obstetrics and Gynecology 11/29/21 Lisa Clarke NP [address] [address] Nurse Practitioner Pulmonary Disease 11/29/21 Ji Dominique MD [address] [place] [address] Consulting Physician Sports Medicine 11/07/22 Andrea Hill MD [address] [place] [address] Consulting Physician Neurosurgery 05/09/23 Hugh Mathis MD [address] [place] [address] Consulting Physician Orthopedic Surgery 07/17/23 Chirag Max MD [address] [facility] [address] [place] [address] Consulting Physician Nephrology 06/10/24 documented as of this encounter
--- OUTSIDE RECORDS SUMMARY | 2024-12-04 10:38 | XMS_ITS | Referral Summary ---
Author Organization [facility] Address [address] [place] [address] Care Team Providers Care Welcome Desk Agent Name Role Phone Aaron Lama MD Primary Care Provide r Clara Lugo MD Unavailable [phone] Lisa Clarke NP Unavailable Ji Dominique MD Unavailable Andrea Hill MD Unavailable Hugh Mathis MD Unavailable [phone] Chirag Max MD Unavailable [phone] Encounters Date Type Department Care Team Description 10/22/2024 Telephone Family Care at [address] [address] Aaron Lama MD Symptom Based Call 09/19/2024 Telephone Family Care at [address] [address] Aaron Lama MD Prior Auth 09/17/2024 Telephone Family Care at [address] [address] Aaron Lama MD 09/15/2024 Telephone [facility] Gastroenterology at [address] [place] [address] Salvador Chung MD from Last [...] 08/06/2024 Assessment & Plan (08/06/2024 11:49 AM SURGERY TECHNICIAN): Clinically stable with no evidence thyroid dysfunction Monitor clinically and consider repeat imaging if clinically indicated Chronic bilateral low back pain with left-sided sciatica 08/06/2024 Assessment & Plan (08/06/2024 11:52 AM SURGERY TECHNICIAN): Controlled/stable, continue current management Continue Zanaflex p.r.n. 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, or unspecified(403.10) 08/06/2024 Assessment & Plan (08/06/2024 11:53 AM SURGERY TECHNICIAN): BP Readings from Last 3 Encounters: 08/06/24 143/84 05/08/24 131/77 04/14/24 (!) 188/63 Controlled/stable, continue current management Continue lisinopril-hydrochlorothiazide Stage 3a chronic kidney disease 08/06/2024 Assessment & Plan (08/06/2024 11:51 AM SURGERY TECHNICIAN): Stable, monitor Follow up with Nephrology Class 2 severe obesity due t o excess calories with serious comorbidity and body mass index (BMI) of 36.0 to 36.9 in adult 08/06/2024 Assessment & Plan (08/06/2024 11:50 AM SURGERY TECHNICIAN): The patient is a candidate for GLP [...] 03/14/2023 Assessment & Plan (08/06/2024 11:52 AM SURGERY TECHNICIAN): Controlled/stable, continue current management Continue Zanaflex p.r.n. Consider consultation to physical therapy or Pain Management if worsening Primary osteoarthritis of left hip 01/29/2023 Spinal stenosis of lumbar re gion without neurogenic claudication 11/07/2022 Assessment & Plan (08/06/2024 11:52 AM SURGERY TECHNICIAN): Controlled/stable, continue current management Continue Zanaflex p.r.n. Consider consultation to physical therapy or Pain Management if worsening Renal cysts, acquired, bilateral 11/07/2022 Overview (11/07/2022): Incidental finding on Lumbar MRI 11/01/22 Assessment & Plan (08/06/2024 11:51 AM SURGERY TECHNICIAN): Incidental finding on lumbar MRI 11/01/2022 Likely benign Will continue to monitor periodically with imaging if clinically indicated Lumbar degenerative disc disease 11/07/2022 Primary osteoarthritis of right hip 11/07/2022 Prediabetes 06/09/2022 Assessment & Plan (08/06/2024 11:49 AM SURGERY TECHNICIAN): Lab Results Component Value Date HGBA1C 6.3 [...] disease) Assessment & Plan (08/06/2024 11:51 AM SURGERY TECHNICIAN): Controlled/stable, continue current management Patient tried weaning [...] 11/23/2017 Assessment & Plan (08/06/2024 11:53 AM SURGERY TECHNICIAN): Patient continues to receive benefit from CPAP Follow-up with Pulmonology Hyperlipidemia 01/10/2014 Overview (12/01/2016): Hyperlipidemia LDL goal < 130 Assessment & Plan (08/06/2024 11:49 AM SURGERY TECHNICIAN): Continue statin therapy Resolved Problems Problem Noted Date Diagnosed Date Resolved Date Positive colorectal cancer s creening using Cologuard test 02/26/2024 08/06/2024 Cervical myelopathy 05/09/2023 08/06/20 24 Elevated hemoglobin A1c 06/03/201807/27 Abnormal findings on radiolo gical examination of gastrointestinal tract 03/03/2014 08/06/2024 Left lower quadrant pain 03/03/201406/2024 Hypertension 01/10/2014 08/06/2024 Overview (11/30/2016): Hypertension Immunizations Immunization Administration Dates Next Due COVID-19 mRNA ([employer]) 0.3 m L (30 mcg) vaccine (12 [...] on file Legal Sex Female 3:46 AM SURGERY TECHNICIAN Gender Identity Not on file Sexual Orientation Not on file Last Filed Vital Signs Vital Sign Reading Time Taken Comments Blood Pressure 143/84 08/06/2024 10:19 AM SURGERY TECHNICIAN Pulse 63 08/06/2024 10:19 AM SURGERY TECHNICIAN Temperature 36.2 C (97.1 F) 05/02/2023 10:10 AM CDT Respiratory Rate 18 04/14/2024 10:00 AM CDT Oxygen Saturation 98% 08/06/2024 10:19 AM SURGERY TECHNICIAN Inhaled Oxygen Concentration - - Weight 91.7 kg (202 lb 1.6 oz) 08/06/2024 10:19 AM SURGERY TECHNICIAN Height 157.5 cm (5' 2 ) 08/06/2024 10:19 AM SURGERY TECHNICIAN Body Mass Index 36.96 08/06/2024 10:19 AM SURGERY TECHNICIAN Plan of Treatment Not on file Procedures [...] Chung MD - 04/14/2024 9:00 AM CDT [facility] Endoscopy Lab Patient Name: Lolis Ching Procedure Date: 04/14/2024 9:00 AM Date of : 1950 Admit Type: Outpatient Age: 73 Gender: Female Note Status: Finalized Attending MD: Salvador Chung M.D. Procedure Date: 04/14/2024 Procedure: Colonoscopy Indications: Positive Cologuard test Providers: Salvador Chung M.D., Christi Ray, SPACE STUDIES FACULTY MEMBER (Anesthesia Staff), Amaya Allred, RN, Mary Tamayo, Diet Supervisor Referring MD: Aaron Lama M.D. Medicines: Monitored [...] bowel preparation was evaluated using the BBPS ([place] Bowel Preparation Scale)with scores of: Right Colon [...] present medications. Procedure Code(s): --- Professional --- 47193, Colonoscopy, flexible; diagnostic, including collection of specimen(s) by brushing or washing,when performed (separate procedure) Diagnosis Code(s): --- Professional --- K64.4, Residual hemorrhoidal skin tags R19.5, Other fecal abnormalities K57.30, Diverticulosis of large intestine without perforation or abscess without bleeding CPT copyright 2020 [employer]. All rights reserved. The codes documented in this report are preliminary and upon loom mechanic reviewmay be revised to meet current compliance [...] CDT) Hep C Ab Nonreactive Nonreactive [facility] Comment: Interpretive Data Positive and greyzone results should be confirmed by a molecular method. If positive or greyzone, a second separately collected sample should be submitted for Hepatitis C Virus RNA. Detection and Quantitation by Real-Time Reverse State Federal Relations Deputy Director-PCR.Current Interpretive data was last revised on 2017. Blood specimen (specimen) 11/23/2017 10:06 AM CDT 11/23/2017 11:43 AM CDT Narrative [facility] - 11/23/2017 1:01 PM CDT Aliya De La Torre NP LAB MICROBIOLOGY - GENERAL [place] JUSTICE Edited Result - Final [facility] Department [place] [address] from Last 3 Months or Most Recently Relevant to Health Maintenance Insurance [facility] MEDICARE ADVANTAGE [employer] MEDICARE [facility] MEDICARE Advance Directives For more information, please contact: [phone] Documents on File Type Date Recorded Patient Heel Breaster Expl anation Power of Labourers 02/23/2023 5:23 PM Guanako Ching Mireya [email or web address] Power of Labourers 02/23/2023 5:23 PM Mireya [email or web address] [email or web address] Healthcare Agents on File Name Relationship Healthcare Agent Relationshi p Communication Guanako Ching Daughter First Alternate Health Care Agent Care Teams Welcome Desk Agent Relationship Specialty [place] [address] [facility] [address] [place] [address] PCP - General Family Medicine 11/23/21 Clara Lugo MD [address] [facility] [address] [place] [address] Consulting Physician Obstetrics and Gynecology 11/29/21 Lisa Clarke INTERACTIVE MEDIA MARKETING STRATEGIST [address] [facility] [address] [place] [address] Nurse Practitioner Pulmonary Disease 11/29/21 Ji Dominique MD [facility] [place] [address] Consulting Physician Sports Medicine 11/07/22 Andrea Hill MD [facility] [place] [address] Consulting Physician Neurosurgery 05/09/23 Hugh Mathis MD [address] [place] [address] Consulting Physician Orthopedic Surgery 07/17/23 Chirag Max MD [address] [facility] [address] [place] [address] Consulting Physician Nephrology 06/10/24
--- OUTSIDE RECORDS SUMMARY | 2024-12-04 10:38 | XMS_ITS | Clinical Summary ---
Author Organization [facility] Address [address] [place] [address] Care Team Providers Care Stage Technician Name Role Phone Aaron Lama MD Primary Care Provide r Clara Lugo MD Unavailable [phone] Lisa Clarke NP Unavailable Ji Dominique MD Unavailable Andrea Hill MD Unavailable Hugh Mathis MD Unavailable [phone] Chirag Max MD Unavailable [phone] Allergies Active Allergy Reactions Criticality Noted [...] 08/06/2024 Assessment & Plan (08/06/2024 11:49 AM ROOF CEMENT AND PAINT MAKER): Clinically stable with no evidence thyroid dysfunction Monitor clinically and consider repeat imaging if clinically indicated Chronic bilateral low back pain with left-sided sciatica 08/06/2024 Assessment & Plan (08/06/2024 11:52 AM ROOF CEMENT AND PAINT MAKER): Controlled/stable, continue current management Continue Zanaflex p.r.n. 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, or unspecified(403.10) 08/06/2024 Assessment & Plan (08/06/2024 11:53 AM ROOF CEMENT AND PAINT MAKER): BP Readings from Last 3 Encounters: 08/06/24 143/84 05/08/24 131/77 04/14/24 (!) 188/63 Controlled/stable, continue current management Continue lisinopril-hydrochlorothiazide Stage 3a chronic kidney disease 08/06/2024 Assessment & Plan (08/06/2024 11:51 AM ROOF CEMENT AND PAINT MAKER): Stable, monitor Follow up with Nephrology Class 2 severe obesity due t o excess calories with serious comorbidity and body mass index (BMI) of 36.0 to 36.9 in adult 08/06/2024 Assessment & Plan (08/06/2024 11:50 AM ROOF CEMENT AND PAINT MAKER): The patient is a candidate for GLP [...] 03/14/2023 Assessment & Plan (08/06/2024 11:52 AM ROOF CEMENT AND PAINT MAKER): Controlled/stable, continue current management Continue Zanaflex p.r.n. Consider consultation to physical therapy or Pain Management if worsening Primary osteoarthritis of left hip 01/29/2023 Spinal stenosis of lumbar re gion without neurogenic claudication 11/07/2022 Assessment & Plan (08/06/2024 11:52 AM ROOF CEMENT AND PAINT MAKER): Controlled/stable, continue current management Continue Zanaflex p.r.n. Consider consultation to physical therapy or Pain Management if worsening Renal cysts, acquired, bilateral 11/07/2022 Overview (11/07/2022): Incidental finding on Lumbar MRI 11/01/22 Assessment & Plan (08/06/2024 11:51 AM ROOF CEMENT AND PAINT MAKER): Incidental finding on lumbar MRI 11/01/2022 Likely benign Will continue to monitor periodically with imaging if clinically indicated Lumbar degenerative disc disease 11/07/2022 Primary osteoarthritis of right hip 11/07/2022 Prediabetes 06/09/2022 Assessment & Plan (08/06/2024 11:49 AM ROOF CEMENT AND PAINT MAKER): Lab Results Component Value Date HGBA1C 6.3 [...] disease) Assessment & Plan (08/06/2024 11:51 AM ROOF CEMENT AND PAINT MAKER): Controlled/stable, continue current management Patient tried weaning [...] 11/23/2017 Assessment & Plan (08/06/2024 11:53 AM ROOF CEMENT AND PAINT MAKER): Patient continues to receive benefit from CPAP Follow-up with Pulmonology Hyperlipidemia 01/10/2014 Overview (12/01/2016): Hyperlipidemia LDL goal < 130 Assessment & Plan (08/06/2024 11:49 AM ROOF CEMENT AND PAINT MAKER): Continue statin therapy Resolved Problems Problem Noted [...] Team Description 10/22/2024 Telephone Family Care at [address] [address] Aaron Lama MD Symptom Based Call 09/19/2024 Telephone Family Care at [address] [address] Aaron Lama MD Prior Auth 09/17/2024 Telephone Family Care at [address] [address] Aaron Lama MD 09/15/2024 Telephone [facility] Gastroenterology at [address], [place] [phone] Salvador Chung MD from Last 3 Months Immunizations Immunization Administration Dates Next Due COVID-19 mRNA ([employer]) 0.3 m L (30 mcg) vaccine (12 [...] on file Legal Sex Female 3:46 AM ROOF CEMENT AND PAINT MAKER Gender Identity Not on file Sexual Orientation Not on file Obstetrics History Last Filed Vital Signs Vital Sign Reading Time Taken Comments Blood Pressure 143/84 08/06/2024 10:19 AM ROOF CEMENT AND PAINT MAKER Pulse 63 08/06/2024 10:19 AM ROOF CEMENT AND PAINT MAKER Temperature 36.2 C (97.1 F) 05/02/2023 10:10 AM CDT Respiratory Rate 18 04/14/2024 10:00 AM CDT Oxygen Saturation 98% 08/06/2024 10:19 AM ROOF CEMENT AND PAINT MAKER Inhaled Oxygen Concentration - - Weight 91.7 kg (202 lb 1.6 oz) 08/06/2024 10:19 AM ROOF CEMENT AND PAINT MAKER Height 157.5 cm (5' 2 ) 08/06/2024 10:19 AM ROOF CEMENT AND PAINT MAKER Body Mass Index 36.96 08/06/2024 10:19 AM ROOF CEMENT AND PAINT MAKER Plan of Treatment Health Maintenance Due Date [...] Chung MD - 04/14/2024 9:00 AM CDT [facility] Endoscopy Lab Patient Name: Lolis Ching Procedure Date: 04/14/2024 9:00 AM Date of : 1950 Admit Type: Outpatient Age: 73 Gender: Female Note Status: Finalized Attending MD: Salvador Chung M.D. Procedure Date: 04/14/2024 Procedure: Colonoscopy Indications: Positive Cologuard test Providers: Salvador Chung M.D., Christi aRy, SCHOOL AGE LEAD TEACHER (Anesthesia Staff), Amaya Allred, WILMER, Mary Tamayo, Location Analyst Referring MD: Aaron Lama M.D. Medicines: Monitored [...] bowel preparation was evaluated using the BBPS ([place] Bowel Preparation Scale)with scores of: Right Colon [...] present medications. Procedure Code(s): --- Professional --- 07331, Colonoscopy, flexible; diagnostic, including collection of specimen(s) by brushing or washing,when performed (separate procedure) Diagnosis Code(s): --- Professional --- K64.4, Residual hemorrhoidal skin tags R19.5, Other fecal abnormalities K57.30, Diverticulosis of large intestine without perforation or abscess without bleeding CPT copyright 2020 [employer]. All rights reserved. The codes documented in this report are preliminary and upon slab stripper reviewmay be revised to meet current compliance [...] AM CDT) Hep C Ab Nonreactive Nonreactive [facility] Comment: Interpretive Data Positive and greyzone results should be confirmed by a molecular method. If positive or greyzone, a second separately collected sample should be submitted for Hepatitis C Virus RNA. Detection and Quantitation by Real-Time Reverse Chip Tester-PCR.Current Interpretive data was last revised on 2017. Blood specimen (specimen) 11/23/2017 10:06 AM CDT 11/23/2017 11:43 AM CDT Narrative [facility] - 11/23/2017 1:01 PM CDT Aliya De La Torre NP LAB MICROBIOLOGY - GENERAL EST[place] JUSTICE Edited Result - Final [facility] [place] [address] from Last 3 Months or Most Recently Relevant to Health Maintenance Insurance [employer] MEDICARE ADVANTAGE [facility] MEDICARE Address: [address] [address] [place] [address] [facility] MEDICARE AETNA MEDICARE Advance Directives For more information, please contact: [phone] Documents on File Type Date Recorded Patient Chip Tester Expl anation Power of Linker Up 02/23/2023 5:23 PM Guanako Fangin [email or web address] Power of Linker Up 02/23/2023 5:23 PM Mireya [email or web address] [email or web address] Healthcare Agents on File Name Relationship Healthcare Agent Relationshi p Communication Guanako Ching Daughter First Alternate Health Care Agent Care Teams Stage Technician Relationship Specialty [place] [address] [facility] [address] [place] [address] PCP - General Family Medicine 11/23/21 Clara Lugo MD [address] [place] [address] Consulting Physician Obstetrics and Gynecology 11/29/21 Lisa Clarke NP [address] [place] [address] Nurse Practitioner Pulmonary Disease 11/29/21 Ji Dominique MD [address] [place] [address] Consulting Physician Sports Medicine 11/07/22 Andrea Hill MD [address] [place] [address] Consulting Physician Neurosurgery 05/09/23 Hugh Mathis MD [address] [place] [address] Consulting Physician Orthopedic Surgery 07/17/23 Chirag Max MD [address] [facility] [address] [place] [address] Consulting Physician Nephrology 06/10/24
== END 2024-12-04 10:00 | disposition home or self-care (01) ==
PROVIDERS: Visit Provider Nurse Practitioner Family
DX: R93.1 Abnormal findings on diagnostic imaging of heart and coronary circulation (principal); R01.1 Cardiac murmur, unspecified
CPT/HCPCS: 93306

== ENCOUNTER 2024-12-09 10:11 | Outpatient (CLI) | payer MEDICARE, SELFPAY ==
--- NOTE | ~2024-12-09 | US_ITS ---
EXAM: RENAL ULTRASOUND HISTORY: I12.9 - Hypertensive chronic kidney disease with stage 1 ... COMPARISON: None FINDINGS: RIGHT KIDNEY: 10.9 x 5.0 x 6.4 cm. The parenchyma of the right kidney is increased in echogenicity and decreased in cortical thickness. No bulky renal calculi. Hydronephrosis is present. Symmetrical prominence of the renal pelvis is present. The proximal right ureter is visualized, and i s also prominent. LEFT KIDNEY: 11.8 x 6.1 x 6.4 cm No bulky renal calculi. The parenchyma of the left kidney is increased in echogenicity and decreased in cortical thickness. Hydronephrosis is present. The proximal left ureter is not visualized on the submitted static images. No images extending into the bladder were submitted. IMPRESSION: Findings suggesting medical renal disease. Bilateral hydronephrosis, without further characterization, as detailed above. Cross-sectional imaging (noncontrast enhanced CT examination of the abdomen and pelvis) may be perfor med for further evaluation, unless this is a known finding. Reviewed, dictated and finalized at location A. IMPRESSION: Findings suggesting medical renal disease. Bilateral hydronephrosis, without further characterization, as detailed above. Cross-sectional imaging (noncontrast enhanced CT examination of the abdomen and pelvis) may be performed for further evaluation, unless this is a known findin mariano
== END 2024-12-09 10:12 | disposition home or self-care (01) ==
LOC: MICIMG 10:12
PROVIDERS: Visit Provider Internal Medicine Nephrology
DX: I12.9 Hypertensive chronic kidney disease with stage 1 through stage 4 chronic kidney disease, or unspecified chronic kidney disease (principal); N18.31 Chronic kidney disease, stage 3a; N13.30 Unspecified hydronephrosis
CPT/HCPCS: 76775

== ENCOUNTER 2025-02-04 12:25 | Outpatient (CLI) | payer MEDICARE, SELFPAY ==
--- NOTE | ~2025-02-04 | MM_ITS ---
EXAMINATION: MM screening abdirahman BI w shilpi HISTORY: Screening TECHNIQUE: Craniocaudal and mediolateral oblique 3-D tomosynthesis images were obtained and synthetic 2-D images were generated. CAD analysis was submitted and interpreted. COMPARISON: No prior mammogram is available for comparison at this institution. BREAST PARENCHYMAL COMPOSITION: Not dense: There are scattered areas of fibroglandular density. FINDINGS: There is no evidence of suspicious mass, calcification, or architectural distortion to sugg est malignancy in either breast. There has been no suspicious interval change. IMPRESSION: 1. No mammographic evidence of malignancy. 2. Recommend routine screening mammography in one year. BI-RADS Category 1: Negative Reviewed, dictated and finalized at location B.
== END 2025-02-04 12:26 | disposition home or self-care (01) ==
LOC: MICIMG 12:26
PROVIDERS: Visit Provider Nurse Practitioner Family
DX: Z12.31 Encounter for screening mammogram for malignant neoplasm of breast (principal)
CPT/HCPCS: 77063; 77067

== ENCOUNTER 2025-07-13 14:54 | Outpatient (CLI) | payer MEDICARE, SELFPAY ==
[2025-07-13 15:45] LABS: Total Protein Urine Random 9 mg/dL; Ur Ttl Prot Creatinine Ratio 0.28 mg/mg (0-0.20)
[2025-07-13 15:49] LABS: Albumin Level 4.4 g/dL (3.5-5.1); Anion Gap 9 mmol/L (4-12); Blood Urea Nitrogen 25 mg/dL (7-17); Calcium 9.2 mg/dL (8.4-10.2); Carbon Dioxide 27 mmol/L (22-30); Chloride 104 mmol/L (98-107); Estimated Glomerular Filt Rate 44; Glucose 95 mg/dL (65-110); Potassium 3.9 mmol/L (3.4-5.0); Sodium 140 mmol/L (137-145)
== END 2025-07-13 14:55 | disposition home or self-care (01) ==
PROVIDERS: Visit Provider Internal Medicine Nephrology
DX: I12.9 Hypertensive chronic kidney disease with stage 1 through stage 4 chronic kidney disease, or unspecified chronic kidney disease (principal); N18.31 Chronic kidney disease, stage 3a
CPT/HCPCS: 36415; 80069; 82570; 84156